=== PATIENT | female | born 1950 | race Caucasian/White ===

== ENCOUNTER 2022-08-14 10:21 | Inpatient (IN) | payer OTHER ==
[~2022-08-14] VITALS: Ht 157.5 cm; Wt 107.5 kg
[2022-08-14 10:25] VITALS: BP 120/57
[2022-08-14] MEDS ORDERED: cefTRIAXone 2,000 MG in DEXTROSE 5% 100 ML IV ONE (10:50)
[2022-08-14] MEDS ORDERED: cefTRIAXone 2,000 MG VIAL ONE (10:56)
[2022-08-14 11:04] LABS: BASOPHILS % (AUTO) 0.3 % (0.0-2.0); HEMATOCRIT 21.2 % (36-48); LYMPHOCYTES # (AUTO) 1.3 K/uL (2.5-16.5); MEAN CORPUSCULAR HEMOGLOBIN 26 pg (27-31); MEAN CORPUSCULAR HGB CONC 31 g/dL (33-37); MEAN CORPUSCULAR VOLUME 82.6 fL (80-94); MONOCYTES # (AUTO) 1.4 K/uL (0.8-1.0); NEUTROPHILS # (AUTO) 12.5 K/uL (1.8-7.7); PLATELET COUNT (AUTO) 396 K/uL (140-450); RED BLOOD CELL COUNT(AUTO) 2.57 MIL/uL (4.20-5.40); RED CELL DISTRIBUTION WIDTH 19.1 % (11.6-13.7); WHITE BLOOD COUNT (AUTO) 15.2 K/uL (4.8-10.8)
[2022-08-14 11:09] LABS: HEMOGLOBIN 6.7 g/dL (12.0-16.0)
[2022-08-14 11:20] LABS: LYMPHOCYTES % (AUTO) 8.2 % (20.5-51.1); MONOCYTES % (AUTO) 9.4 % (1.7-9.3); NEUTROPHILS % (AUTO) 82.1 % (42.2-75.2)
[2022-08-14 11:22] LABS: ANION GAP 16.6 (8-16); POTASSIUM 5.6 mmol/L (3.5-5.1); TOTAL BILIRUBIN 0.3 mg/dL (0.0-1.0)
[2022-08-14 11:27] LABS: CREATININE 4.9 mg/dL (0.6-1.3)
[2022-08-14 11:30] LABS: ALBUMIN 2.5 g/dL (3.4-5.0)
--- NOTE | 2022-08-14 11:43 | NUR ---
pt sleeping, no ac distress, o2 sat 95% at 90% o2, st on cm hr 102, sr up times 2, denies any pain
[2022-08-14] MEDS ORDERED: FUROSEMIDE 40 MG/4 ML VIAL IVP ONE (12:25)
[2022-08-14] MEDS ORDERED: CALCIUM CHLORIDE 10% 100 MG/ML SYR IVP ONE (12:25)
[2022-08-14] MEDS ORDERED: DEXTROSE 50% 50 ML SYR IVP ONE (12:25)
[2022-08-14] MEDS ORDERED: INSULIN REGULAR, HUMAN 100 UNIT/ML VIAL SUBQ ONE (12:25)
[2022-08-14 12:56] LABS: PROTHROMBIN TIME 10.9 secs (10.8-13.4)
--- NOTE | 2022-08-14 13:16 | NUR ---
SYLVESTER ALFRED was called ([phone]) for blood consent, no answer at this time.
[2022-08-14] MEDS ORDERED: VANCOMYCIN PER PHARMACY MC PRN (14:00)
[2022-08-14] MEDS ORDERED: HYDROcodone/APAP 5/325 MG 1 TAB TAB PO PRN (14:00)
[2022-08-14] MEDS ORDERED: MORPHINE SULFATE 4 MG/ML SYR IVP PRN (14:00)
--- NOTE | 2022-08-14 14:25 | NUR ---
sleeping, on 90% o2, o2 sat 96%, no pain, sr on cm, sr up times 2
[2022-08-14] MEDS ORDERED: PIPERACILLIN/TAZOBACTAM 2.25 GM VIAL IV ONE ×3 (14:46→21:44)
[2022-08-14] MEDS ORDERED: SODIUM ZIRCONIUM CYCLOSILICATE 10 GM POWD.PACK PO SCH (15:00)
[2022-08-14] MEDS: PIPERACILLIN/TAZOBACTAM 2.25 GM in DEXTROSE 5% 50 ML IV SCH ×2 (15:30→21:00)
[2022-08-14] MEDS ORDERED: VANCOMYCIN 1,000 MG VIAL ONE (15:41)
[2022-08-14] MEDS ORDERED: VANCOMYCIN 1,000 MG in DEXTROSE 5% 250 ML IV SCH (16:00)
[2022-08-14] MEDS: FUROSEMIDE 40 MG/4 ML VIAL IVP SCH (17:00)
--- NOTE | 2022-08-14 17:00 | NUR ---
no ac distress, sleeping, denies any pain, o2 sat 97% at 90% o2, sr up times 2
[2022-08-14] MEDS ORDERED: PIPERACILLIN/TAZOBACTAM 3.375 GM in DEXTROSE 5% 50 ML IV SCH (18:00)
[2022-08-14] MEDS: ALBUTEROL SULFATE/IPRATROPIU 3 ML SOL IH SCH (19:00)
--- NOTE | 2022-08-14 21:30 | NUR ---
ASSUMED CARE AT THIS TIME. PT ALERT AND ORIENTED X4. OMANI SPEAKING. UNDERSTANDS LITTLE MALTESE. PT IS ON BEDREST. HI FLOW ON 36 L/MIN. 02 SAT IN THE 90'S. 22 GAUGE TO RIGHT WRIST AND LEFT FOREARM. NPO DIET. PT IS WITH NEPHROSTOMY TUBE TO LEFT SIDE. NO COMPLAINTS AT THIS TIME.
[2022-08-14] MEDS: PANTOPRAZOLE 40 MG INJ VIAL IVP SCH (21:37)
--- NOTE | 2022-08-14 21:45 | NUR ---
REPORT AND CARE TO ARELI AVALOS WITH FULL RETURNED VERBAL UNDERSTANDING.
--- NOTE | 2022-08-14 22:30 | NUR ---
ALL PM MEDS GIVEN.
[2022-08-15] MEDS: ALBUTEROL SULFATE/IPRATROPIU 3 ML SOL IH SCH ×4 (01:00→19:47)
--- NOTE | 2022-08-15 02:30 | NUR ---
PT RESTING. DENIES COMPLAINTS OF PAIN.
[2022-08-15] MEDS ORDERED: PIPERACILLIN/TAZOBACTAM 2.25 GM VIAL IV ONE ×3 (04:26→21:32)
--- NOTE | 2022-08-15 04:45 | NUR ---
PT CLEANED AND REPOSITIONED. PT SEEMED TO BE WET BUT NO BM.
[2022-08-15] MEDS: PIPERACILLIN/TAZOBACTAM 2.25 GM in DEXTROSE 5% 50 ML IV SCH ×3 (04:49→21:45)
[2022-08-15 06:47] LABS: BASOPHILS # (AUTO) 0.1 K/uL (0.00-0.22); BASOPHILS % (AUTO) 0.5 % (0.0-2.0); HEMATOCRIT 25.1 % (36-48); HEMOGLOBIN 8.1 g/dL (12.0-16.0); LYMPHOCYTES # (AUTO) 0.7 K/uL (2.5-16.5); LYMPHOCYTES % (AUTO) 3.7 % (20.5-51.1); MEAN CORPUSCULAR HEMOGLOBIN 27 pg (27-31); MEAN CORPUSCULAR HGB CONC 32 g/dL (33-37); MEAN CORPUSCULAR VOLUME 84.1 fL (80-94); MONOCYTES % (AUTO) 10.4 % (1.7-9.3); NEUTROPHILS # (AUTO) 16.6 K/uL (1.8-7.7); NEUTROPHILS % (AUTO) 85.4 % (42.2-75.2); PLATELET COUNT (AUTO) 352 K/uL (140-450); RED BLOOD CELL COUNT(AUTO) 2.99 MIL/uL (4.20-5.40); WHITE BLOOD COUNT (AUTO) 19.5 K/uL (4.8-10.8)
[2022-08-15 07:16] LABS: ALBUMIN 1.9 g/dL (3.4-5.0); ANION GAP 17.7 (8-16); CARBON DIOXIDE 22.5 mmol/L (21-32); MAGNESIUM 2.1 mg/dL (1.8-2.4); PHOSPHORUS 6.7 mg/dL (2.5-4.9); POTASSIUM 5.2 mmol/L (3.5-5.1); TOTAL BILIRUBIN 0.2 mg/dL (0.0-1.0)
[2022-08-15 07:18] LABS: CREATININE 5.2 mg/dL (0.6-1.3)
--- NOTE | 2022-08-15 07:31 | NUR ---
ASSUMED PATIENT CARE EYE CLOSE, EASILY AWAKEN, ON MERCHANDISE HANDLER, NEPHOSTOMY WITH MINIMAL OUTPUT, 5 ML, ON HIGH FLOW, NO ACUTE DISTRESS NOTED WILL CONTINUE TO MO NITOR.
[2022-08-15] MEDS: PANTOPRAZOLE 40 MG INJ VIAL IVP SCH ×2 (08:50→21:44)
[2022-08-15] MEDS: FUROSEMIDE 40 MG/4 ML VIAL IVP SCH ×2 (08:50→17:37)
--- NOTE | 2022-08-15 09:24 | NUR ---
PATIENT HAS BEEN SCREENED AND CATEGORIZED MODERATE NUTRITION RISK. PATIENT WILL BE SEEN WITHIN 3-5 DAYS OF ADMISSION. 08/14/22-08/19/[address]
--- NOTE | 2022-08-15 10:07 | NUR ---
PATIENT REMAINS IN BED, ON ROOF ASSEMBLER, NO ACUTE DISTRESS NOTED, WILL CONTINUE TO MONITOR.
--- NOTE | 2022-08-15 12:14 | NUR ---
KIDNEY ULTRASOUND IN PROGRESS.
[2022-08-15] MEDS ORDERED: ALBUTEROL SULFATE/IPRATROPIU 3 ML SOL IH PRN (12:25)
--- NOTE | 2022-08-15 12:50 | NUR ---
PATIENT CHANGED POSITION WITH ASSISTANCE, CLEANS AND SHEETS CHANGED, REMAINS ON DELIVERY MGR, WILL CONTINUE TO MONITOR.
--- NOTE | 2022-08-15 14:53 | NUR ---
CALL CHARLES WITH ROOM NUMBER [phone]. OR SYLVESTER [phone]
--- NOTE | 2022-08-15 14:55 | NUR ---
NEPHROSTOMY EMPTIED FOR 200 YELLOW CLOUDY FLUID.
--- NOTE | 2022-08-15 15:30 | NUR ---
patient placed on bipap.
[2022-08-15 15:38] VITALS: BP 125/55
--- NOTE | 2022-08-15 19:40 | NUR ---
Resumed care of patient. AOx4, wolof speaking. Pt on bipap o2sat 93%. No s/s distress. No c/o pain. VSS. Continues to be on bedside monitor.
--- NOTE | 2022-08-15 19:44 | NUR ---
Respiratory Therapist at bedside for respiratory intervention
[2022-08-15 19:49] VITALS: BP 129/66
--- NOTE | 2022-08-15 22:33 | NUR ---
Attemped to call tele unit twice to give report. No response.
--- NOTE | 2022-08-15 23:00 | NUR ---
PATIENT WAS ADMITTED IN THE TELEMETRY UNIT AWAKE ALERT PORTUGUESE SPEAKING. CC: SOB AND HYPOXIA. PLACED ON BIPAP A WITH FIO2 100% SATING 93%. ON HIGH FOWLERS POSITION. INSTRUCTED PATIENT TO BE NPO EXCEPT MEDS WITH UNDERSTANDING. NO COMPLAINTS OF PAIN. ALL SAFETY PRECAUTIONS ARE IN PLACE. CALL LIGHT WITHIN REACH.
--- NOTE | 2022-08-15 23:04 | NUR ---
Report given bedside to Kady AVALOS for transfer of care.
--- NOTE | 2022-08-16 01:21 | NUR ---
PT REFUSING BIPAP AT THIS TIME. PLACED ON HFNC 40L 100%. PT FEELS BETTER. SPO2 89%, HR 104, RR 30. NO FURTHER INTERVENTIONS INDICATED.
[2022-08-16] MEDS: ALBUTEROL SULFATE/IPRATROPIU 3 ML SOL IH SCH ×4 (03:38→19:13)
[2022-08-16 04:00] VITALS: BP 143/63
[2022-08-16] MEDS ORDERED: PIPERACILLIN/TAZOBACTAM 2.25 GM VIAL IV ONE (04:40)
[2022-08-16] MEDS: PIPERACILLIN/TAZOBACTAM 2.25 GM in DEXTROSE 5% 50 ML IV SCH ×3 (04:42→20:53)
--- NOTE | 2022-08-16 06:30 | NUR ---
URINE COLLECTED FOR UA , WALK IN TO LAB
[2022-08-16 06:37] LABS: HEMATOCRIT 24.3 % (36-48); HEMOGLOBIN 7.8 g/dL (12.0-16.0); MEAN CORPUSCULAR HEMOGLOBIN 27 pg (27-31); MEAN CORPUSCULAR HGB CONC 32 g/dL (33-37); PLATELET COUNT (AUTO) 346 K/uL (140-450); RED CELL DISTRIBUTION WIDTH 18.9 % (11.6-13.7); WHITE BLOOD COUNT (AUTO) 15.7 K/uL (4.8-10.8)
[2022-08-16 06:53] LABS: APPEARANCE,URINE CLEAR (CLEAR); BILIRUBIN,URINE NEGATIVE (NEGATIVE); BLOOD, URINE 2+ (NEGATIVE); COLOR,URINE YELLOW (YELLOW); LEUKOCYTE ESTERASE ,URINE 2+ (NEGATIVE); NITRITE, URINE NEGATIVE (NEGATIVE); PH,URINE 5.5 (5.0-9.0); UGLUCOSE NEGATIVE (NEGATIVE)
[2022-08-16 07:07] LABS: RBC,URINE 11-20 (MOD) /HPF (0-5)
[2022-08-16 07:08] LABS: OTHER CASTS, URINE None Seen /LPF (None Seen)
[2022-08-16 07:34] LABS: ALBUMIN 1.8 g/dL (3.4-5.0); ANION GAP 19.4 (8-16); CARBON DIOXIDE 20.4 mmol/L (21-32); MAGNESIUM 2.1 mg/dL (1.8-2.4); POTASSIUM 4.8 mmol/L (3.5-5.1); TOTAL BILIRUBIN 0.3 mg/dL (0.0-1.0)
--- NOTE | 2022-08-16 07:39 | NUR ---
GAVE REPORT TO AM SHIFT NURSE JACKSON FOR CONTINUITY OF CARE. PT ON HI FLOW AT 40L FIO2 100%.
[2022-08-16 07:59] LABS: CREATININE 5.2 mg/dL (0.6-1.3)
[2022-08-16 08:00] VITALS: BP 146/68
--- NOTE | 2022-08-16 08:40 | NUR ---
LOC AWAKE AND ALERT GOOD CHEST RISE IRRITABLE/ANGRY STATUS REFUSING ALL HHN THERAPY ADAMANTLY RIGHT FINGER STATING NO - NO
[2022-08-16] MEDS: PANTOPRAZOLE 40 MG INJ VIAL IVP SCH ×2 (09:00→20:53)
[2022-08-16] MEDS: FUROSEMIDE 40 MG/4 ML VIAL IVP SCH ×2 (09:00→17:13)
[2022-08-16] MEDS ORDERED: VANCOMYCIN HCL 1.25 GM in DEXTROSE 5% 250 ML IV SCH (09:00)
[2022-08-16] MEDS: MORPHINE SULFATE 2 MG/ML SYR IVP PRN ×2 (09:49→17:13)
[2022-08-16 11:29] LABS: LYMPHOCYTES % (MANUAL) 6 % (20-46); MONOCYTES % (MANUAL) 4 % (5-12)
[2022-08-16 12:00] VITALS: BP 135/59
[2022-08-16 16:00] VITALS: BP 139/74
--- NOTE | 2022-08-16 16:20 | NUR ---
DC PLANNING ANIBAL UNABLE TO MEET WITH PT AT BEDSIDE TO COMPLETE ASSESSMENT, THEREFORE SW OUTREACHED TO [facility] TO GATHER COLLATERAL INFORMATION. ANIBAL SPOKE W/ BASIA PETERSON, DIRECTOR. [facility]IA REPORTS PT IS IN SKILLED CARE WITH FACILITY, ADMISSION DATE 07/21/22. [facility] REPORTS PT IS ALERT AND ORIENTED X4 AT BASELINE. [facility] IDENTIFIED SYLVESTER ALFRED, FRIEND, PT EMERGENCY CONTACT. [facility] REPORTS NO KNOWN FAMILY INVOLVEMENT, AND REPORTS PT HAS A SON, HOWEVER RESIDES OUT OF STATE. PT IS REPORTED TO UTILIZE FWW AND COMPLETES ADL'S INDEPENDENTLY. PT IS REPORTED TO BE COMPLIANT WITH CARE. NO HX OF DIABETES/DIALYSIS TX REPORTED. BASIA REPORTS DC PLAN IS FOR PT TO RETURN ONCE MEDICALLY STABLE. Addendum: 08/16/22 at 1621 by Maisha SHEETS Amended: Links added. Addendum: 08/17/22 at 1716 by Maisha SHEETS PT PRIMARILY MONGOLIAN SPEAKING, PROVIDED SW NL HX OF PT AND REQUESTED SW SPEAK WITH PT TO GATHER ADDITIONAL INFORMATION OF FAMILY CONTACT. CAROLYN ACKNOWLEDGED AND REPORTS SHE WILL SPEAK TO PT
--- NOTE | 2022-08-16 18:37 | NUR ---
ATTEMPTED TO INSERT MILLER CATHETER ORDERED MET WITH RESISTANCE THEN BLOOD INSERTION ABORTED AND DR TUCKER TEXTED AND MADE AWARE CN AWARE MILLER CATHETER INSERTION UNSUCESSFUL
[2022-08-16 20:00] VITALS: BP 148/77
--- NOTE | 2022-08-16 20:53 | NUR ---
SCHEDULED MEDICATIONS ADMINISTERED.
[2022-08-17] VITALS: BP 142/63
[2022-08-17] MEDS: ALBUTEROL SULFATE/IPRATROPIU 3 ML SOL IH SCH ×3 (01:00→19:56)
[2022-08-17 04:00] VITALS: BP 138/68
[2022-08-17] MEDS: PIPERACILLIN/TAZOBACTAM 2.25 GM in DEXTROSE 5% 50 ML IV SCH ×3 (05:17→20:45)
--- NOTE | 2022-08-17 06:58 | NUR ---
PATIENT IS AWAKE ALERT VERBALLY RESPONSIVE IN URDU. ON HIGH FLOW O2 AT 22L. NO DISTRESS. NO COMPLAINTS OF PAIN. CALL LIGHT ON EASY REACH. SAFETY MEASURES IN PLACE.
[2022-08-17 07:36] LABS: BASOPHILS # (AUTO) 0.1 K/uL (0.00-0.22); BASOPHILS % (AUTO) 0.9 % (0.0-2.0); EOSINOPHILS # (AUTO) 0.4 K/uL (0-0.4); EOSINOPHILS % (AUTO) 2.8 % (0.0-4.0); HEMATOCRIT 23.2 % (36-48); HEMOGLOBIN 7.8 g/dL (12.0-16.0); LYMPHOCYTES # (AUTO) 1.2 K/uL (2.5-16.5); LYMPHOCYTES % (AUTO) 9.1 % (20.5-51.1); MEAN CORPUSCULAR HEMOGLOBIN 27 pg (27-31); MEAN CORPUSCULAR HGB CONC 33 g/dL (33-37); MEAN CORPUSCULAR VOLUME 81.6 fL (80-94); MONOCYTES # (AUTO) 1.4 K/uL (0.8-1.0); MONOCYTES % (AUTO) 10.8 % (1.7-9.3); NEUTROPHILS # (AUTO) 9.9 K/uL (1.8-7.7); NEUTROPHILS % (AUTO) 76.4 % (42.2-75.2); PLATELET COUNT (AUTO) 332 K/uL (140-450); RED BLOOD CELL COUNT(AUTO) 2.85 MIL/uL (4.20-5.40); RED CELL DISTRIBUTION WIDTH 18.9 % (11.6-13.7)
[2022-08-17 07:41] LABS: ALBUMIN 2.2 g/dL (3.4-5.0); ANION GAP 17.1 (8-16); MAGNESIUM 1.8 mg/dL (1.8-2.4); POTASSIUM 4.1 mmol/L (3.5-5.1); TOTAL BILIRUBIN 0.4 mg/dL (0.0-1.0)
--- NOTE | 2022-08-17 07:48 | NUR ---
ENDORSED PATIENT TO DAY SHIFT NURSE JACKSON FOR CONTINUITY OF CARE. PATIENT STABLE.
[2022-08-17 08:00] VITALS: BP 125/68
[2022-08-17 08:01] LABS: CREATININE 4.6 mg/dL (0.6-1.3)
--- NOTE | 2022-08-17 08:07 | NUR ---
ASSESSMENT COMPLETED PLAN OF CARE REVIEWED UROLOGIST RESEARCH LABORATORY SPECIALIST IN AND MADE AWARE OF BUN AND CREATININE RESULTS TODAY UROLOGIST ORDERED UROLOGY CART TO BEDSIDE UROLOGY CART AT BEDSIDE PER UROLOGY RESEARCH LABORATORY SPECIALIST REQUEST PT CONDITION GUARDED WILL CONITNUE TO ONITOR AND ASSESS
[2022-08-17] MEDS: PANTOPRAZOLE 40 MG INJ VIAL IVP SCH ×2 (09:18→20:52)
[2022-08-17] MEDS: FUROSEMIDE 40 MG/4 ML VIAL IVP SCH ×2 (09:19→16:55)
--- NOTE | 2022-08-17 11:30 | NUR ---
PT IS SATING 88% ON HFNC 100% AND SLEEPING. DR WANTED TO TRY AND PLACE PT ON NC 4L PT WILL NOT TOLERATE TITRATION AT THIS TIME. WILL WAIT FOR PT TO BECOME MORE STABLE TO TRY TITRATION OF O2. WILL CONTINUE TO MONITOR.
[2022-08-17 12:00] VITALS: BP 129/57
[2022-08-17 16:00] VITALS: BP 134/85
--- NOTE | 2022-08-17 19:20 | NUR ---
RECEIVED REPORT FROM OUTGOING DAY NURSE. PT IN BED, IV FLUID RUNNING @ 5ML/HR. PT ON HFNC SATING @93-95. ON PT LT SIDE IS NEPHRETOMY DRAINING YELLOW URINE. WILL CONT TO MONITOR.
[2022-08-17] MEDS: ACETAMINOPHEN 325 MG TAB PO PRN (20:35)
--- NOTE | 2022-08-17 21:00 | NUR ---
PT LYING IN BED, ASSISTED WITH REPOSITIONING. HS MEDICATIONS GIVEN, TOLERATED WELL, NO ASE NOTED.
--- NOTE | 2022-08-17 22:00 | NUR ---
EMPTIED 400ML YELLOW URINE FROM PT NEPHRECTOMY BAG, PT REPOSITED, GIVEN SOME WATER TO DRINK REQUESTED. WILL CONT. TO MONITOR.
[2022-08-17 23:27] VITALS: BP 156/71
[2022-08-18] MEDS: ALBUTEROL SULFATE/IPRATROPIU 3 ML SOL IH SCH ×4 (02:27→19:38)
[2022-08-18] MEDS: PIPERACILLIN/TAZOBACTAM 2.25 GM in DEXTROSE 5% 50 ML IV SCH ×3 (05:39→22:02)
[2022-08-18 05:41] VITALS: BP 113/48
[2022-08-18 07:08] LABS: ALBUMIN 2.2 g/dL (3.4-5.0); ANION GAP 16.6 (8-16); CARBON DIOXIDE 25.2 mmol/L (21-32); MAGNESIUM 1.8 mg/dL (1.8-2.4); PHOSPHORUS 5.2 mg/dL (2.5-4.9); POTASSIUM 3.8 mmol/L (3.5-5.1); TOTAL BILIRUBIN 0.4 mg/dL (0.0-1.0)
--- NOTE | 2022-08-18 07:25 | NUR ---
END OF SHIFT REPORT GIVEN TO DAY NURSE ADAMA FOR CONTINUITY OF CARE. PT ASLEEP IN BED COMFORTABLY. PT STABLE AND IN NO APPARENT DISTRESS.
[2022-08-18 07:40] LABS: BASOPHILS # (AUTO) 0.1 K/uL (0.00-0.22); EOSINOPHILS # (AUTO) 0.5 K/uL (0-0.4); EOSINOPHILS % (AUTO) 3.6 % (0.0-4.0); HEMATOCRIT 24.4 % (36-48); HEMOGLOBIN 8.1 g/dL (12.0-16.0); LYMPHOCYTES # (AUTO) 1.2 K/uL (2.5-16.5); LYMPHOCYTES % (AUTO) 9.3 % (20.5-51.1); MEAN CORPUSCULAR HEMOGLOBIN 27 pg (27-31); MEAN CORPUSCULAR HGB CONC 33 g/dL (33-37); MEAN CORPUSCULAR VOLUME 81.3 fL (80-94); MONOCYTES # (AUTO) 1.2 K/uL (0.8-1.0); MONOCYTES % (AUTO) 9.5 % (1.7-9.3); NEUTROPHILS # (AUTO) 9.9 K/uL (1.8-7.7); NEUTROPHILS % (AUTO) 76.6 % (42.2-75.2); PLATELET COUNT (AUTO) 350 K/uL (140-450); RED CELL DISTRIBUTION WIDTH 18.6 % (11.6-13.7); WHITE BLOOD COUNT (AUTO) 12.9 K/uL (4.8-10.8)
[2022-08-18 07:59] LABS: CREATININE 4.3 mg/dL (0.6-1.3)
[2022-08-18 08:00] VITALS: BP 113/48
[2022-08-18] MEDS: PANTOPRAZOLE 40 MG INJ VIAL IVP SCH ×2 (10:40→22:03)
[2022-08-18] MEDS: FUROSEMIDE 40 MG/4 ML VIAL IVP SCH ×2 (10:41→17:00)
[2022-08-18 12:00] VITALS: BP 113/48
--- NOTE | 2022-08-18 13:35 | NUR ---
SATURATION 97% ON FIO2 OF 100% VIA VAPOTHERM HIGH FLOW NASAL CANNULA POST HHN THERAPY TITRATED FIO2 TO 75%
[2022-08-18 16:00] VITALS: BP 110/53
--- NOTE | 2022-08-18 19:50 | NUR ---
RECEIVED PT ON BED, AWAKE, ALERT AND VERBALLY RESPONSIVE IN [place]. NO SOB OR DISTRESS. PT IS ON RENAL DIET. IV SITE IS ON RIGHT FOREARM 20G, INTACT AND PATENT. PT WITH NEPHROSTOMY TUBE, INTACT, URINE WITH LIGHT YELLOW COLOR IS DRAINING INTO THE BAG.
--- NOTE | 2022-08-18 19:53 | NUR ---
ENDORSE PATIENT TO PM SHIFT NURSE IN STABLE CONDITION, PIV R. FOREARM SALINE LOCK.
[2022-08-18 20:00] VITALS: BP 114/63
--- NOTE | 2022-08-18 21:15 | NUR ---
PT TAKEN TO RADIOLOGY FOR ABDOMINAL CAT SCAN. PT TRANSPORTED WITH HIGH FLOW, TOLERATES WELL.
--- NOTE | 2022-08-18 21:20 | NUR ---
ASSISTED IN TRANSFER TO CT WITH NURSE VILLA. PLACED PT ON NRB 100% PT SPO2 REMAINED AT 100%. NO ISSUES DURING TRANSPORT. PLACED PT BACK ON HFNC 25L 75% SPO2 97%
[2022-08-19] VITALS: BP 143/72
[2022-08-19] MEDS: ALBUTEROL SULFATE/IPRATROPIU 3 ML SOL IH SCH ×4 (01:00→19:00)
[2022-08-19 04:00] VITALS: BP 119/65
[2022-08-19 07:02] LABS: BASOPHILS # (AUTO) 0.1 K/uL (0.00-0.22); BASOPHILS % (AUTO) 0.6 % (0.0-2.0); EOSINOPHILS # (AUTO) 0.3 K/uL (0-0.4); EOSINOPHILS % (AUTO) 2.2 % (0.0-4.0); LYMPHOCYTES # (AUTO) 1.5 K/uL (2.5-16.5); LYMPHOCYTES % (AUTO) 10.5 % (20.5-51.1); MEAN CORPUSCULAR HEMOGLOBIN 27 pg (27-31); MEAN CORPUSCULAR HGB CONC 33 g/dL (33-37); MEAN CORPUSCULAR VOLUME 80.8 fL (80-94); MONOCYTES # (AUTO) 1.2 K/uL (0.8-1.0); MONOCYTES % (AUTO) 8.5 % (1.7-9.3); NEUTROPHILS # (AUTO) 11.2 K/uL (1.8-7.7); NEUTROPHILS % (AUTO) 78.2 % (42.2-75.2); PLATELET COUNT (AUTO) 334 K/uL (140-450); RED BLOOD CELL COUNT(AUTO) 2.97 MIL/uL (4.20-5.40); RED CELL DISTRIBUTION WIDTH 18.7 % (11.6-13.7); WHITE BLOOD COUNT (AUTO) 14.3 K/uL (4.8-10.8)
--- NOTE | 2022-08-19 07:20 | NUR ---
RECEIVED PT ON HFNC 25L, 75%,33 DEGREE. GOOD CHEST RISE, CLEAR/ DIMINISHED BREATH SOUNDS. SATURATION 96%. STRONG COUGH. WILL CONTINUE TO MONITOR.
[2022-08-19 07:35] LABS: ALBUMIN 2.2 g/dL (3.4-5.0); ANION GAP 15.7 (8-16); CARBON DIOXIDE 25.7 mmol/L (21-32); MAGNESIUM 1.8 mg/dL (1.8-2.4); POTASSIUM 3.4 mmol/L (3.5-5.1); TOTAL BILIRUBIN 0.5 mg/dL (0.0-1.0)
[2022-08-19 07:43] LABS: CREATININE 4.2 mg/dL (0.6-1.3)
[2022-08-19 08:00] VITALS: BP 133/59
[2022-08-19] MEDS: FUROSEMIDE 40 MG/4 ML VIAL IVP SCH ×3 (09:44→17:15)
[2022-08-19] MEDS: PANTOPRAZOLE 40 MG INJ VIAL IVP SCH ×2 (09:44→21:23)
--- NOTE | 2022-08-19 10:00 | NUR ---
ALL MORNING MEDICATIONS GIVE, ASSESSMENT COMPLETE. PT STABLE. PT HAS BEEN CLEANED AND REPOSITIONED. 1 MODERATE BM NOTED. ALL SAFETY MEASURES IN PLACE, CALL LIGHT WITHIN REACH. WILL CONTINUE TO MONITOR.
[2022-08-19 12:00] VITALS: BP 125/58
--- NOTE | 2022-08-19 12:56 | NUR ---
DC PLANNING: SUSHANT GABRIEL OF [facility] [phone] CONTACTED TO PROVIDE UPDATES. NO ANSWER. LEFT MESSAGE REQUESTING CALL BACK. Addendum: 08/24/22 at 1444 by Missy Archuleta RN DC PLANNING: PATIENT HAS A DC ORDER TO RETURN TO [facility] SPOKE WITH GARCIA JIMENEZ GO TO ROOM 102 # TO GIVE REPORT [phone] ARRANGED TRANSPORT WITH [facility]ER TIME 4 PM NOTIFIED JAMES AVALOS. AUTH FOR TRANSPORT [id number] FOR SNF [id number] CM TO FOLLOW
[2022-08-19] MEDS ORDERED: POTASSIUM CHLORIDE 10 MEQ TABER PO SCH (15:45)
[2022-08-19 16:00] VITALS: BP 122/56
--- NOTE | 2022-08-19 16:49 | NUR ---
08/19/22 RD INITIAL ASSESSMENT COMPLETED PLEASE REFER TO NUTRITION ASSESSMENT UNDER CARE ACTIVITY FOR ESTIMATED NUTRITIONAL NEEDS. 1. CONTINUE RENAL DIET TOLERATED 2. MONITOR NUTRITION RELATED LAB VALUES 3. RD TO FOLLOW-UP 7 DAYS, LOW RISK REVIEWED BY OLE SERRANO RD
--- NOTE | 2022-08-19 17:44 | NUR ---
PRIOR DOSAGE/ FREQ GIVEN AT ROUGHLY 1640 FOR 1700 DOSE OF LASIX. CONFIRMED WITH PHARMACY THAT THE NEW ORDER DOES NOT HAVE TO BE GIVEN DUE TO ORDER ALREADY BEING FULFILLED
--- NOTE | 2022-08-19 19:30 | NUR ---
RECEIVED REPORT FROM DAY SHIFT NURSE EPHRAIM FOR CONTINUITY OF CARE. PATIENT IS A&O X3, CAMBODIAN SPEAKING. PATIENT IS ON HIGH FLOW OXYGEN 25L; BREATHING IS NORMAL WITH SYMMETRICAL RISE AND FALL OF CHEST. IV IS A 20G RFA; NO FLUIDS RUNNING AT THIS TIME (SALINE LOCKED). PATIENT IS LYING SEMI-FOWLERS, SLEEPING. BED IS IN LOWEST POSITION, WHEELS LOCKED, CALL LIGHT IN PLACE. WILL CONTINUE TO OBSERVE PATIENT.
[2022-08-19 20:00] VITALS: BP_SYST 133; BP_SYST 134; BP_DIAS 57; BP_DIAS 59
[2022-08-20] VITALS: BP 112/47
[2022-08-20] MEDS: ALBUTEROL SULFATE/IPRATROPIU 3 ML SOL IH SCH ×4 (00:53→19:54)
[2022-08-20 04:00] VITALS: BP 141/51
--- NOTE | 2022-08-20 04:00 | NUR ---
PATIENT HAS SLEPT MOST OF THE NIGHT. PATIENT'S NEPHROSTOMY BAG HAS BEEN EMPTIED MULTIPLE TIMES THROUGHOUT THE NIGHT. PATIENT IS STILL ON HIGH FLOW 25L AT FIO2 70. WILL CONTINUE TO OBSERVE PATIENT.
--- NOTE | 2022-08-20 07:27 | NUR ---
RECEIVED REPORT FROM DIRECTOR MEDICAL ECONOMICS NURSE FOR CONTINUITY OF CARE, POC DISCUSSED. ALL NIGHT EVENTS HAVE BEEN DISCUSSED, PT STILL ON HIGH FLOW AT 25L AND 70%, SATING AT 94%. CHEST RISING AND FALLING EVEN AND UNLABORED. ALL SAFETY MEASURES IN PLACE, CALL LIGHT WITHIN REACH, WILL CONTINUE TO MONITOR.
--- NOTE | 2022-08-20 07:30 | NUR ---
ENDORSED TO DAY SHIFT NURSE EPHRAIM FOR CONTINUITY OF CARE. PATIENT IS STABLE.
[2022-08-20 08:00] VITALS: BP 132/65
--- NOTE | 2022-08-20 09:00 | NUR ---
ZAIN MEDICATION ADMINISTERED PER MD ORDER, PT TOLERATED ADMINISTRATION. 550 CC REMOVED FROM CATHETER. PT STABLE WITH NO S/S OF DISTRESS. ALL SAFETY MEASURES IN PLACE, CALL LIGHT WITHIN REACH. WILL CONTINUE TO MONITOR.
[2022-08-20] MEDS: PANTOPRAZOLE 40 MG INJ VIAL IVP SCH ×2 (09:03→23:54)
[2022-08-20] MEDS: FUROSEMIDE 40 MG/4 ML VIAL IVP SCH ×3 (09:03→16:55)
--- NOTE | 2022-08-20 11:52 | NUR ---
PT REPORTING HAVING A BM, PT CLEANED, NEW SHEETS AND GOWN PROVIDED. ALL NEEDS HAVE BEEN MET, ALL SAFETY MEASURES IN PLACE, CALL LIGHT WITHIN REACH. WILL CONTINUE TO MONITOR.
[2022-08-20 12:00] VITALS: BP 134/60
[2022-08-20] MEDS ORDERED: POTASSIUM CHLORIDE 10 MEQ TABER PO SCH (13:30)
--- NOTE | 2022-08-20 13:49 | NUR ---
ZAIN MEDICATION ADMINISTERED AND PT CLEANED AND REPOSITIONED. 1 BM NOTED. ALL SAFETY MEASURES IN PLACE, CALL LIGHT WITHIN REACH. WILL CONTINUE TO MONITOR.
[2022-08-20 16:00] VITALS: BP 143/57
--- NOTE | 2022-08-20 16:01 | NUR ---
PATIENT DOING GOOD AT BEDSIDE,TALKING IN PHONE,ALL NEEDS ARE CURRENTLY MET, ALL SAFETY MEASURES ARE IN PLACE,WILL CONTINUE TO MONITOR
--- NOTE | 2022-08-20 18:55 | NUR ---
ALL NEEDS HAVE BEEN MET THROUGHOUT THE SHIFT. ALL SAFETY MEASURES IN PLACE, CALL LIGHT WITHIN REACH. WILL CONTINUE TO MONITOR.
--- NOTE | 2022-08-20 19:30 | NUR ---
HAND-OFF REPORT RECEIVED FROM EPHRAIM AVALOS FOR CONTINUITY OF CARE. PT RECEIVED A/OX2. HI FLOW 25L/MIN@70%. SAT 94%. LEFT NEPHROSTOMY TUBE TO GRAVITY FLOW CLEAR YELLOW URINE.
[2022-08-20 20:00] VITALS: BP 134/55
--- NOTE | 2022-08-20 22:00 | NUR ---
PT RESTING DENIES PAIN. ASSESSMENT COMPLETE. PT STABLE. LARGE STOOL. KELLY-CARE. ALL SAFETY MEASURES IN PLACE. CALL LIGHT WITHIN REACH. CONT TO MONITOR.
[2022-08-21] VITALS: BP 136/62
[2022-08-21] MEDS: ALBUTEROL SULFATE/IPRATROPIU 3 ML SOL IH SCH ×4 (01:00→19:00)
[2022-08-21 04:00] VITALS: BP 125/52
--- NOTE | 2022-08-21 04:00 | NUR ---
RESPIRATORY AT BEDSIDE TO CHECK WHY SAT ALARM SOUNDING INSPITE OF PT BREATHING DEEPLY. PT WAS LAYING ON CORD OBSTRUCTING AIR FLOW OF MACHINE. PT REPOSITIONED AND PT TEACHING CONCERNING EQUIPMENT PROPER USE.
--- NOTE | 2022-08-21 07:25 | NUR ---
RECEIVED REPORT FROM CROCHET BEADER NURSE FOR CONTINUITY OF ARE. PT IS STABLE.
--- NOTE | 2022-08-21 07:30 | NUR ---
HAND-OFF REPORT TO HAYDE Weber RN FOR CONTINUITY OF CARE. LEFT NEPHROSTOMY TUBE TOTAL FOR SHIFT 1450 MLs CLEAR PALE YELLOW NON FOUL SMELLING URINE. EMPTIED IN 3 BATCHES BAG IS SMALL. PT TEACHING CONCERNING NURSE EMPTYING SCHEDULE OF BAG TO ALLAY PT FEARS OF BAG BURSTING OF BACK FLOWING.RELINQUISHED CARE OF PT AT THIS TIME.
[2022-08-21 08:00] VITALS: BP 139/56
[2022-08-21] MEDS: PANTOPRAZOLE 40 MG INJ VIAL IVP SCH ×2 (09:42→21:00)
[2022-08-21] MEDS: FUROSEMIDE 40 MG/4 ML VIAL IVP SCH ×3 (09:42→17:18)
[2022-08-21 11:06] LABS: BASOPHILS # (AUTO) 0.1 K/uL (0.00-0.22); BASOPHILS % (AUTO) 0.9 % (0.0-2.0); EOSINOPHILS # (AUTO) 0.4 K/uL (0-0.4); HEMATOCRIT 28.9 % (36-48); HEMOGLOBIN 9.4 g/dL (12.0-16.0); LYMPHOCYTES # (AUTO) 1.3 K/uL (2.5-16.5); LYMPHOCYTES % (AUTO) 18.2 % (20.5-51.1); MEAN CORPUSCULAR HEMOGLOBIN 27 pg (27-31); MEAN CORPUSCULAR HGB CONC 32 g/dL (33-37); MEAN CORPUSCULAR VOLUME 82.8 fL (80-94); MONOCYTES # (AUTO) 0.7 K/uL (0.8-1.0); MONOCYTES % (AUTO) 10.5 % (1.7-9.3); NEUTROPHILS # (AUTO) 4.6 K/uL (1.8-7.7); NEUTROPHILS % (AUTO) 64.4 % (42.2-75.2); PLATELET COUNT (AUTO) 34 K/uL (140-450); RED BLOOD CELL COUNT(AUTO) 3.49 MIL/uL (4.20-5.40); RED CELL DISTRIBUTION WIDTH 18.5 % (11.6-13.7); WHITE BLOOD COUNT (AUTO) 7.1 K/uL (4.8-10.8)
[2022-08-21 11:15] LABS: ANION GAP 15.6 (8-16); CARBON DIOXIDE 26.5 mmol/L (21-32); CREATININE 2.8 mg/dL (0.6-1.3); POTASSIUM 4.1 mmol/L (3.5-5.1)
[2022-08-21 12:00] VITALS: BP 143/58
[2022-08-21 16:00] VITALS: BP 139/52
--- NOTE | 2022-08-21 19:15 | NUR ---
ENDORSED PT TO GENERAL WAREHOUSE WORKER FOR CONTINUITY OF CARE. PT STABLE.
--- NOTE | 2022-08-21 19:30 | NUR ---
HAND-OFF REPORT RECEIVED FROM HAYED AVALOS. ENDORSED MERREM BEGAN PER NEW ID CONSULT. ULTRASOUND OF KIDNEYS ORDERED AND PENDING. DRESSING IS TO REMAIN UNDISTURBED UNLESS ORDERED OTHERWISE. ABG'S ORDERED WITH BIPAP AT [facility] PENDING CO2 LEVELS. PT RECEIVED A/0X4.
[2022-08-21 20:00] VITALS: BP 148/59
--- NOTE | 2022-08-21 20:00 | NUR ---
ASSISTED WITH BSC. ONE MOD AMT SOFT FORMED STOOL PERICARE AND BACK TO BED. NEPHROSTOMY TUBE EMPTIED. FAMILY VISITING AND INTERPRETED TO PT NO GETTING OOB INDEPENDENTLY BUT PUSH RED BUTTON FOR NURSE TO ASSIST THEREBY AVERTING POSSIBLE FALL. PT STATED UNDERSTOOD. ALSO EXPLAINED TO LET STAFF DO ALL MANIPULATIONS OF NEPHROSTOMY BAG SUCH EMPTYING SO AN ACCURATE COUNT CAN BE OBTAINED. STATED UNDERSTOOD.
[2022-08-21] MEDS: MEROPENEM 500 MG in NACL 0.9% 50 ML IV SCH (21:00)
--- NOTE | 2022-08-21 23:21 | NUR ---
HFNC FIO2 TITRATED TO 53% W/ SPO2 OF 95% 10 MIN POST TITRATION WILL CONTINUE TO MONITOR AND TITRATE TOLERATED
[2022-08-21] MEDS: ACETAMINOPHEN 325 MG TAB PO PRN (23:35)
[2022-08-22] VITALS (7 sets, daily range): BP systolic 108–158; BP diastolic 41–78
[2022-08-22] MEDS: ALBUTEROL SULFATE/IPRATROPIU 3 ML SOL IH SCH ×4 (01:00→20:20)
[2022-08-22 07:00] LABS: BASOPHILS # (AUTO) 0.1 K/uL (0.00-0.22); BASOPHILS % (AUTO) 0.8 % (0.0-2.0); EOSINOPHILS # (AUTO) 0.6 K/uL (0-0.4); EOSINOPHILS % (AUTO) 6.6 % (0.0-4.0); HEMATOCRIT 23.6 % (36-48); HEMOGLOBIN 7.9 g/dL (12.0-16.0); LYMPHOCYTES # (AUTO) 1.4 K/uL (2.5-16.5); LYMPHOCYTES % (AUTO) 16.3 % (20.5-51.1); MEAN CORPUSCULAR HEMOGLOBIN 27 pg (27-31); MEAN CORPUSCULAR HGB CONC 33 g/dL (33-37); MEAN CORPUSCULAR VOLUME 81.1 fL (80-94); MONOCYTES # (AUTO) 1.1 K/uL (0.8-1.0); MONOCYTES % (AUTO) 12.9 % (1.7-9.3); NEUTROPHILS # (AUTO) 5.6 K/uL (1.8-7.7); NEUTROPHILS % (AUTO) 63.4 % (42.2-75.2); PLATELET COUNT (AUTO) 363 K/uL (140-450); RED BLOOD CELL COUNT(AUTO) 2.91 MIL/uL (4.20-5.40); RED CELL DISTRIBUTION WIDTH 18.4 % (11.6-13.7); WHITE BLOOD COUNT (AUTO) 8.9 K/uL (4.8-10.8)
[2022-08-22 07:09] LABS: ANION GAP 13.9 (8-16); CARBON DIOXIDE 30.1 mmol/L (21-32); CREATININE 2.3 mg/dL (0.6-1.3)
--- NOTE | 2022-08-22 07:10 | NUR ---
RECEIVED REPORT FRON MEDICAL INSTRUMENT TECHNICIAN NURSE FOR CONTINUITY OF ARE. PT IS STABLE.
[2022-08-22 07:22] LABS: MAGNESIUM 1.4 mg/dL (1.8-2.4); PHOSPHORUS 4.3 mg/dL (2.5-4.9)
--- NOTE | 2022-08-22 07:30 | NUR ---
HAND-OFF REPORT TO ONCOMING/RETURNING NURSE HAYDE. ENDORSED PT COMPLIANT WITH HANDLING OF NEPHROSTOMY BAG.HI FLOW CONTINUES. PT MEDICATED WITH TYLENOL FOR FRONTAL HEADACHE AT HS AND SLEPT WELL THRU OUT NOC. MERREM BEGAN ORDERED. ULTRASOUND AND BIPAP PENDING.RELINQUISHED CARE OF PT AT THS TIME.
--- NOTE | 2022-08-22 07:48 | NUR ---
HFNC FIO2 TITRATED TO 50% W/ SPO2 OF 97% 10 MIN POST TITRATION. WILL CONTINUE TO MONITOR AND TITRATE TOLERATED
[2022-08-22] MEDS: PANTOPRAZOLE 40 MG INJ VIAL IVP SCH ×2 (09:22→21:00)
[2022-08-22] MEDS: FUROSEMIDE 40 MG/4 ML VIAL IVP SCH ×3 (09:22→21:00)
[2022-08-22] MEDS: MEROPENEM 500 MG in NACL 0.9% 50 ML IV SCH ×2 (09:24→21:00)
[2022-08-22] MEDS ORDERED: MAG SULF 2000 MG/WATER PREMIX 50 ML IV PRN (10:05)
[2022-08-22] MEDS: POTASSIUM CHLORIDE 10 MEQ TABER PO PRN (10:48)
--- NOTE | 2022-08-22 19:20 | NUR ---
ENDORSED PT TO WOOD CALKER FOR CONTINUITY OF CARE. PT STABLE.
--- NOTE | 2022-08-22 20:00 | NUR ---
HAND-OFF REPORT FROM HAYDE AVALOS.ENDORSED: MAG AND POTASSIUM REPLACED. MAG LEVEL 1.4 AND 2 GRAM RIDER GIVEN TOLERATED WELL. POTASSIUM 3.0 AND TOTAL OF 60 K DUR GIVEN.ONE BM. CONTINUE SINUS RHYTHM.REMAINS ON HI NICHOLE. LEFT NEPHROSTOMY WITH CONTINUED GOOD OUTPUT. RECEIVED PT ON POTTY CHAIR. LARGE SOFT STOOL. ASSISTED BACK TO BED. SPONGE BATH GOWN CHANGE AND FRESH PADS GIVEN. ASSISTED FOR PROPER BODY ALIGNMENT AND COMFORT. PT TEACHING NOT TO GET OOB ALONE BUT TO USE CALL LIGHT AND WAIT FOR ASSISTANCE. HI-FLOW CONTINUES ORDERED.
--- NOTE | 2022-08-22 20:20 | NUR ---
TOOK PT OFF HFNC AND PLACED ON 10L BUBBLE CANNULA. PT CHRISTI WELL.
[2022-08-23] VITALS: BP 118/47
[2022-08-23] MEDS: ALBUTEROL SULFATE/IPRATROPIU 3 ML SOL IH SCH ×4 (00:29→19:23)
--- NOTE | 2022-08-23 02:22 | NUR ---
PT RESTING WELL. NO RESP DISTRESS.
[2022-08-23 04:00] VITALS: BP 128/56
--- NOTE | 2022-08-23 06:30 | NUR ---
HI-NICHOLE D/C AND [address]. TOLERATING WELL THUS FAR. ENDORSE TO Gus AUSTIN FOR CONTINUITY OF CARE. RELINQUISHED CARE OF PT AT THIS TIME.
[2022-08-23 07:08] LABS: BASOPHILS # (AUTO) 0.1 K/uL (0.00-0.22); BASOPHILS % (AUTO) 0.9 % (0.0-2.0); EOSINOPHILS # (AUTO) 0.6 K/uL (0-0.4); EOSINOPHILS % (AUTO) 7.4 % (0.0-4.0); HEMATOCRIT 23.6 % (36-48); HEMOGLOBIN 7.8 g/dL (12.0-16.0); LYMPHOCYTES # (AUTO) 1.6 K/uL (2.5-16.5); LYMPHOCYTES % (AUTO) 18.4 % (20.5-51.1); MEAN CORPUSCULAR HEMOGLOBIN 27 pg (27-31); MEAN CORPUSCULAR HGB CONC 33 g/dL (33-37); MEAN CORPUSCULAR VOLUME 81.4 fL (80-94); MONOCYTES # (AUTO) 1.1 K/uL (0.8-1.0); MONOCYTES % (AUTO) 13.1 % (1.7-9.3); NEUTROPHILS # (AUTO) 5.3 K/uL (1.8-7.7); NEUTROPHILS % (AUTO) 60.2 % (42.2-75.2); PLATELET COUNT (AUTO) 388 K/uL (140-450); RED CELL DISTRIBUTION WIDTH 18.6 % (11.6-13.7); WHITE BLOOD COUNT (AUTO) 8.7 K/uL (4.8-10.8)
[2022-08-23 07:13] LABS: ANION GAP 10.8 (8-16); CARBON DIOXIDE 32.7 mmol/L (21-32); CREATININE 2.2 mg/dL (0.6-1.3); MAGNESIUM 1.8 mg/dL (1.8-2.4); PHOSPHORUS 4.5 mg/dL (2.5-4.9); POTASSIUM 3.5 mmol/L (3.5-5.1)
[2022-08-23 08:00] VITALS: BP 119/52
--- NOTE | 2022-08-23 08:00 | NUR ---
DR. VILLAGOMEZ NOTIFIED OF PATIENTS LAB RESULTS FOR 08/23/21 AND HGB LEVEL 7.8 NO NEW ORDERS AT THIS TIME.
--- NOTE | 2022-08-23 08:00 | NUR ---
PATIENT ALERT AND VERBALLY RESPONSIVE. MONGOLIAN SPEAKING. A&O X4 FORGETFUL. STABLE AND AFEBRILE. BREATHING EVEN AND NON LABORED. NO SOB OR DYSPNEA. CONTINUED ON O2 VIA NC. DENIES PAIN. CONTINUED NORMAL SINUS RHYTHM. CONTINENT OF BOWEL. NEPHROSTOMY ON LEFT SIDE. NEPHROSTOMY SITE DRESSING CHANGE PROVIDED. ADMITTED WITH DX:PNA AND GI BLEED. IV INTACT AND SALINE LOCKED. IV ATB ORDERED FOR ESBL URINE. NO ADVERSE REACTIONS NOTED. CONTINUE ON CONTACT PRECAUTIONS. ABLE TO TRANSFER WITH STAND BY ASSIST. USES BEDSIDE COMMODE FOR BM. ASSISTED WITH PERICARE. NEPHROSTOMY TUBE CARE PROVIDED DRAINING YELLOW URINE. ALL NEEDS MET. CALL LIGHT IN REACH. BED LOCKED IN LOWEST POSITION. REMINDED PATIENT TO USE CALL LIGHT IN NEED OF ASSISTANCE. PATIENT VERBALIZED UNDERSTANDING. CONTINUE PLAN OF CARE.
--- NOTE | 2022-08-23 08:14 | NUR ---
RECEIVED ON SUPPLEMENTAL OXYGEN AT 10 LPM VIA CURAPLEX NASAL CANNULA WITH A BUBBLE HUMIDIFIER SATURATION 100% POST HHN THERAPY TITRATED FIO2 TO 7 LPM EARLY CHILDHOOD COORDINATOR TO MONITOR TITRATED FIO2 TOLERATED EARLY CHILDHOOD COORDINATOR TO NOTIFY AM ROBBIE
[2022-08-23] MEDS: MEROPENEM 500 MG in NACL 0.9% 50 ML IV SCH ×2 (09:39→22:15)
[2022-08-23] MEDS: FUROSEMIDE 40 MG/4 ML VIAL IVP SCH ×2 (09:42→22:15)
[2022-08-23] MEDS: PANTOPRAZOLE 40 MG INJ VIAL IVP SCH ×2 (09:43→22:15)
[2022-08-23 12:00] VITALS: BP 116/56
--- NOTE | 2022-08-23 13:37 | NUR ---
SATURATION 100% ON SUPPLEMENTAL OXYGEN AT 7 LPM VIA NC POST HHN THERAPY TITRATED FIO2 TO 4 LPM
[2022-08-23 16:00] VITALS: BP 151/69
[2022-08-23] MEDS ORDERED: MAG SULF 2000 MG/WATER PREMIX 50 ML IV SCH (16:00)
[2022-08-23] MEDS ORDERED: acetaZOLAMIDE sodium 250 MG in NACL 0.9% 50 ML IV SCH (16:30)
--- NOTE | 2022-08-23 17:10 | NUR ---
NORMAN/NOUGAT CUTTER MACHINE NOTIFIED OF OXYGEN TITRATION TO 4 LPM VIA NC
--- NOTE | 2022-08-23 19:30 | NUR ---
RECEIVED REPORT FROM DAY SHIFT NURSE NORMAN FOR CONTINUITY OF CARE. PATIENT IS A&O X4, LIBERIAN SPEAKING. PATIENT IS ON NC 4L WITH BUBBLER. IV IS A 20G LAC, NO FLUIDS RUNNING (SALINE LOCKED). PATIENT IS RESTING, LYING SUPINE. BED IS IN LOWEST POSITION, WHEELS LOCKED, CALL LIGHT IN PLACE. WILL CONTINUE TO OBSERVE PATIENT.
[2022-08-23 20:00] VITALS: BP 131/55
[2022-08-24] VITALS: BP 122/49
--- NOTE | 2022-08-24 | NUR ---
MEDICATIONS ADMINISTERED TO PATIENT WITHOUT ANY ISSUES. PATIENT TOLERATED WELL. NEPHROSTOMY BAG IS STILL FUNCTIONING APPROPRIATELY. WILL CONTINUE TO OBSERVE PATIENT.
[2022-08-24 04:00] VITALS: BP 141/53
--- NOTE | 2022-08-24 04:00 | NUR ---
PATIENT IS SLEEPING. BREATHING IS NORMAL WITH SYMMETRICAL RISE AND FALL OF CHEST. WILL CONTINUE TO OBSERVE PATIENT.
[2022-08-24 07:00] LABS: BASOPHILS # (AUTO) 0.1 K/uL (0.00-0.22); BASOPHILS % (AUTO) 0.8 % (0.0-2.0); EOSINOPHILS # (AUTO) 0.7 K/uL (0-0.4); EOSINOPHILS % (AUTO) 7.9 % (0.0-4.0); HEMATOCRIT 23.4 % (36-48); HEMOGLOBIN 7.8 g/dL (12.0-16.0); LYMPHOCYTES # (AUTO) 1.6 K/uL (2.5-16.5); LYMPHOCYTES % (AUTO) 17.5 % (20.5-51.1); MEAN CORPUSCULAR HEMOGLOBIN 27 pg (27-31); MEAN CORPUSCULAR HGB CONC 33 g/dL (33-37); MEAN CORPUSCULAR VOLUME 81.4 fL (80-94); MONOCYTES # (AUTO) 1.1 K/uL (0.8-1.0); MONOCYTES % (AUTO) 12.1 % (1.7-9.3); NEUTROPHILS # (AUTO) 5.5 K/uL (1.8-7.7); NEUTROPHILS % (AUTO) 61.7 % (42.2-75.2); PLATELET COUNT (AUTO) 427 K/uL (140-450); RED BLOOD CELL COUNT(AUTO) 2.87 MIL/uL (4.20-5.40); RED CELL DISTRIBUTION WIDTH 17.9 % (11.6-13.7)
[2022-08-24 07:15] LABS: ANION GAP 10.2 (8-16); CARBON DIOXIDE 33.2 mmol/L (21-32); POTASSIUM 3.4 mmol/L (3.5-5.1)
[2022-08-24 07:21] LABS: MAGNESIUM 2.3 mg/dL (1.8-2.4); PHOSPHORUS 4.5 mg/dL (2.5-4.9)
--- NOTE | 2022-08-24 07:50 | NUR ---
ENDORSED TO DAY SHIFT NURSE JAMES FOR CONTINUITY OF CARE. PATIENT IS STABLE.
[2022-08-24 08:00] VITALS: BP 120/78
--- NOTE | 2022-08-24 08:24 | NUR ---
GOT REPORT FROM THE NIGHT NURSE, PT ASLEEP NO SOB [id number]
[2022-08-24] MEDS: FUROSEMIDE 40 MG/4 ML VIAL IVP SCH (08:49)
[2022-08-24] MEDS: PANTOPRAZOLE 40 MG INJ VIAL IVP SCH (08:49)
[2022-08-24] MEDS: POTASSIUM CHLORIDE 10 MEQ TABER PO PRN (08:50)
[2022-08-24] MEDS: MEROPENEM 500 MG in NACL 0.9% 50 ML IV SCH (08:51)
[2022-08-24] MEDS ORDERED: ALBU3SOL83 IH (09:50)
[2022-08-24] MEDS ORDERED: FURO-570 PO (09:50)
[2022-08-24] MEDS ORDERED: MERO500P9 IV (09:50)
[2022-08-24 12:00] VITALS: BP_SYST 120; BP_SYST 126; BP_DIAS 71; BP_DIAS 78
--- NOTE | 2022-08-24 16:20 | NUR ---
PT DISCHARGED TO [facility], LEFT HL IN PLACE PER DR ORDER, ID AND EKG IS DISCONNECTED. DISCHARGE INSTRUCTION IS GIVEN. PT LEFT UNIT WITHOUT DISCOMFORT AND SOB.[id number]
== END 2022-08-24 16:20 | DRG 871 ==
LOC: MED 10:21 → MTU 14:03
PROVIDERS: ADMIT Internal Medicine; ATTEND Internal Medicine
PROC: 30233N1 Transfusion of Nonautologous Red Blood Cells into Peripheral Vein, Percutaneous Approach (ICD-10-PCS; principal; 2022-08-14)
PROC: 5A09357 Assistance with Respiratory Ventilation, Less than 24 Consecutive Hours, Continuous Positive Airway Pressure (ICD-10-PCS; 2022-08-14)
PROC: 5A09357 Assistance with Respiratory Ventilation, Less than 24 Consecutive Hours, Continuous Positive Airway Pressure (ICD-10-PCS; 2022-08-15)
PROC: 5A09457 Assistance with Respiratory Ventilation, 24-96 Consecutive Hours, Continuous Positive Airway Pressure (ICD-10-PCS; 2022-08-15)
PROC: 5A0935A Assistance with Respiratory Ventilation, Less than 24 Consecutive Hours, High Flow/Velocity Cannula (ICD-10-PCS; 2022-08-16)
PROC: 5A09357 Assistance with Respiratory Ventilation, Less than 24 Consecutive Hours, Continuous Positive Airway Pressure (ICD-10-PCS; 2022-08-16)
PROC: 5A0935A Assistance with Respiratory Ventilation, Less than 24 Consecutive Hours, High Flow/Velocity Cannula (ICD-10-PCS; 2022-08-17)
PROC: 5A09357 Assistance with Respiratory Ventilation, Less than 24 Consecutive Hours, Continuous Positive Airway Pressure (ICD-10-PCS; 2022-08-17)
PROC: 5A0935A Assistance with Respiratory Ventilation, Less than 24 Consecutive Hours, High Flow/Velocity Cannula (ICD-10-PCS; 2022-08-18)
PROC: 5A0935A Assistance with Respiratory Ventilation, Less than 24 Consecutive Hours, High Flow/Velocity Cannula (ICD-10-PCS; 2022-08-19)
PROC: 5A0935A Assistance with Respiratory Ventilation, Less than 24 Consecutive Hours, High Flow/Velocity Cannula (ICD-10-PCS; 2022-08-21)
PROC: 5A0935A Assistance with Respiratory Ventilation, Less than 24 Consecutive Hours, High Flow/Velocity Cannula (ICD-10-PCS; 2022-08-22)
DX: A41.59 Other Gram-negative sepsis (principal); I21.4 Non-ST elevation (NSTEMI) myocardial infarction; J96.01 Acute respiratory failure with hypoxia; J18.9 Pneumonia, unspecified organism; N17.0 Acute kidney failure with tubular necrosis; I50.21 Acute systolic (congestive) heart failure; I42.9 Cardiomyopathy, unspecified; Z68.41 Body mass index [BMI] 40.0-44.9, adult; N13.6 Pyonephrosis; I13.0 Hypertensive heart and chronic kidney disease with heart failure and stage 1 through stage 4 chronic kidney disease, or unspecified chronic kidney disease; J81.1 Chronic pulmonary edema; C67.9 Malignant neoplasm of bladder, unspecified; D64.9 Anemia, unspecified; Z66 Do not resuscitate; K40.90 Unilateral inguinal hernia, without obstruction or gangrene, not specified as recurrent; E66.01 Morbid (severe) obesity due to excess calories; D69.6 Thrombocytopenia, unspecified; Z20.822 Contact with and (suspected) exposure to COVID-19; N18.9 Chronic kidney disease, unspecified; Z86.718 Personal history of other venous thrombosis and embolism; Z85.51 Personal history of malignant neoplasm of bladder; Z93.6 Other artificial openings of urinary tract status
CPT/HCPCS: 36415; 36600; 71045; 76770; 80048; 80053; 80202; 81001; 82570; 82803; 83605; 83735; 83880; 84100; 84300; 84484; 85025; 85379; 85384; 85610; 85730; 86886; 86900; 86901; 86920; 87040; 87081; 87086; 93005; 94640; 94660; 96372; 96374; 96375; 99291; C9113; J0696; J1120; J1815; J1940; J2185; J2270; J2543; J3370; J3475; J7060; P9016; Q0092

== ENCOUNTER 2022-08-30 11:05 | Inpatient (IN) | payer OTHER ==
[~2022-08-30] VITALS: Ht 152.4 cm; Wt 104.3 kg
[~2022-08-30 11:05] MED LIST: ALBU3SOL83 IH; FURO-570 PO; MERO500P9 IV
--- NOTE | 2022-08-30 11:08 | NUR ---
BIBA TO BED 8
[2022-08-30 11:11] VITALS: BP 156/78
--- NOTE | 2022-08-30 11:21 | NUR ---
Note undone in EDM - 08/30/22 at 1509 by PHSEP 72YO FEMALE PT BIBA [facility] C/O NEPHROSTOMY TUBE LEAK X2DAYS. L NEPHROSTOMY IN PLACE , REDNESS NOTED AROUND W/ URINE ON DRESSING. STATES TUBE PLACEMENT ON 06/2022 . DENIES PAIN, N/V, FEVER OR CHILLS. PT AAOX4, AMB W/ ASSIST. COMORAN SPEAKING HX: CKD, VENTRAL HERNIA, GERD, COLON AND BLADDER CANCER // PHX: HTN NKA
--- NOTE | 2022-08-30 11:21 | NUR ---
72YO FEMALE PT BIBA [facility] C/O NEPHROSTOMY TUBE LEAK X2DAYS. L NEPHROSTOMY IN PLACE , REDNESS NOTED AROUND W/ URINE ON DRESSING. STATES TUBE PLACEMENT ON 06/2022 . ON 2L VIA NC AT BASELINE. DENIES PAIN, N/V, FEVER OR CHILLS. PT AAOX4, AMB W/ ASSIST. TUNISIAN SPEAKING HX: CKD, VENTRAL HERNIA W/O OBSTUCTION , GERD, ACUTE RESPIRATORY FAILURE, COLON AND BLADDER CANCER // PHX: HTN NKA
--- NOTE | 2022-08-30 11:38 | NUR ---
MD LUU AT BEDSIDE FOR EVALUATION
--- NOTE | 2022-08-30 11:59 | NUR ---
pt swabbed for covid(jaime). walked and handed to lab
[2022-08-30 12:42] LABS: BASOPHILS # (AUTO) 0.1 K/uL (0.00-0.22); BASOPHILS % (AUTO) 1.1 % (0.0-2.0); EOSINOPHILS # (AUTO) 0.4 K/uL (0-0.4); EOSINOPHILS % (AUTO) 3.4 % (0.0-4.0); HEMATOCRIT 22.6 % (36-48); HEMOGLOBIN 7.4 g/dL (12.0-16.0); LYMPHOCYTES # (AUTO) 1.1 K/uL (2.5-16.5); LYMPHOCYTES % (AUTO) 10.5 % (20.5-51.1); MEAN CORPUSCULAR HEMOGLOBIN 27 pg (27-31); MEAN CORPUSCULAR HGB CONC 33 g/dL (33-37); MEAN CORPUSCULAR VOLUME 82.3 fL (80-94); MONOCYTES # (AUTO) 1.4 K/uL (0.8-1.0); MONOCYTES % (AUTO) 12.9 % (1.7-9.3); NEUTROPHILS # (AUTO) 7.6 K/uL (1.8-7.7); NEUTROPHILS % (AUTO) 72.1 % (42.2-75.2); PLATELET COUNT (AUTO) 434 K/uL (140-450); RED BLOOD CELL COUNT(AUTO) 2.74 MIL/uL (4.20-5.40); RED CELL DISTRIBUTION WIDTH 17.7 % (11.6-13.7); WHITE BLOOD COUNT (AUTO) 10.6 K/uL (4.8-10.8)
[2022-08-30 12:58] LABS: PROTHROMBIN TIME 10.4 secs (10.8-13.4)
[2022-08-30 13:04] LABS: ALBUMIN 2.4 g/dL (3.4-5.0); CARBON DIOXIDE 24.6 mmol/L (21-32); POTASSIUM 4.6 mmol/L (3.5-5.1); TOTAL BILIRUBIN 0.4 mg/dL (0.0-1.0)
[2022-08-30 13:11] LABS: CREATININE 5.9 mg/dL (0.6-1.3)
[2022-08-30] MEDS ORDERED: NACL 0.9% 1,000 ML IV ONE (13:20)
[2022-08-30 14:27] LABS: BILIRUBIN,URINE NEGATIVE (NEGATIVE); BLOOD, URINE 3+ (NEGATIVE); LEUKOCYTE ESTERASE ,URINE 3+ (NEGATIVE); NITRITE, URINE NEGATIVE (NEGATIVE); PH,URINE 5.5 (5.0-9.0); UGLUCOSE NEGATIVE (NEGATIVE)
[2022-08-30 14:31] LABS: APPEARANCE,URINE CLOUDY (CLEAR); COLOR,URINE STRAW (YELLOW)
[2022-08-30] MEDS ORDERED: MEROPENEM 500 MG in NACL 0.9% 50 ML IV ONE (14:45)
[2022-08-30 14:46] LABS: RBC,URINE NONE SEEN /HPF (0-5); WBC,URINE TOO MANY TO COUNT /HPF (0-5)
[2022-08-30 14:47] LABS: YEAST,URINE Moderate /HPF (None Seen)
[2022-08-30] MEDS ORDERED: MEROPENEM 500 MG VIAL IV ONE (14:58)
[2022-08-30] MEDS ORDERED: MEROPENEM 1,000 MG VIAL IV ONE (14:58)
[2022-08-30] MEDS ORDERED: ACET-2619 PO (15:17)
[2022-08-30] MEDS ORDERED: ASPI-1822 PO (15:18)
[2022-08-30] MEDS ORDERED: [UNRECOGNIZED DRUG - CODE] PO (15:23)
[2022-08-30] MEDS ORDERED: CALC0.2527 PO (15:23)
[2022-08-30] MEDS ORDERED: ACETAMINOPHEN 325 MG TAB PO PRN (15:35)
[2022-08-30] MEDS ORDERED: ONDANSETRON 4 MG/2 ML VIAL IVP PRN (15:35)
[2022-08-30] MEDS ORDERED: MORPHINE SULFATE 4 MG/ML SYR IVP PRN (15:35)
[2022-08-30] MEDS ORDERED: FURO40TA9 PO (15:45)
[2022-08-30] MEDS ORDERED: [UNRECOGNIZED DRUG - CODE] PO (15:45)
[2022-08-30] MEDS ORDERED: PANT40EC56 PO (15:51)
[2022-08-30] MEDS ORDERED: VITA-16 PO (15:56)
[2022-08-30] MEDS ORDERED: POTA20TA49 PO (15:56)
[2022-08-30] MEDS ORDERED: ZINC220C9 PO (15:58)
[2022-08-30] MEDS ORDERED: NYST15CR10 TP (16:08)
[2022-08-30] MEDS: NACL 0.9% 1,000 ML IV SCH (16:18)
--- NOTE | 2022-08-30 18:15 | NUR ---
pt provided w/ dinner. pt awake , repositioned and eating in bed
--- NOTE | 2022-08-30 19:17 | NUR ---
REPORT GIVEN TO AMSOUD GALLEGO. TRANSFER OF CARE AT THIS TIME
--- NOTE | 2022-08-30 19:40 | NUR ---
72 Y/O F PRESENTS WITH L OSTOMY LEAKAGE. AWAITING TRANSFER TO MED SURG UNIT. PT HAS A 22G R HAND. PT IS A&OX4, AZERBAIJANI SPEAKING ONLY. AMBULATORY WITH ASSISTANCE PMH- HERNIA, GERD, COLON/BLADDER CANCER NKA
--- NOTE | 2022-08-30 20:40 | NUR ---
AWAITING ADMISSION TO MED SURG. REPORT GIVEN TO TESS AVALOS
--- NOTE | 2022-08-30 20:40 | NUR ---
Patient will be admitted to care of JUSTIN VILLAGOMEZ. Admited to MED SURG. Will go to [id number]. Belongings list completed. Report to TESS AVALOS.
[2022-08-30 20:50] VITALS: BP 149/65
--- NOTE | 2022-08-30 20:50 | NUR ---
RECEIVED REPORT FROM ER NURSE NHI FOR CONTINUITY OF CARE. PATIENT IS A&O X4, FAROESE SPEAKING. PATIENT IS ON ROOM AIR, BREATHING IS NORMAL WITH SYMMETRICAL RISE AND FALL OF CHEST. IV IS A 22G R HAND, RUNNING NS AT 75. L NEPHROSTOMY BAG IS PRESENT. PATIENT IS LYING SEMI-FOWLERS IN BED. BED IS IN LOWEST POSITION, WHEELS LOCKED CALL LIGHT IN PLACE. WILL CONTINUE TO OBSERVE PATIENT.
--- NOTE | 2022-08-30 21:23 | NUR ---
The patient's care was reviewed and supervised by Kayla Gray RN.
--- NOTE | 2022-08-31 04:00 | NUR ---
PATIENT PULLED OUT HER IV. NEW IV WAS PLACED BY NURSE DUNLAP; NEW IV SITE IS A 22G IN THE LEFT HAND. PATIENT'S BED SHEETS AND COVERS WERE WET FROM IV. CHANGED PATIENT'S BED SHEETS, CHUCKS, AND GAVE PATIENT NEW BLANKETS. PATIENT WAS ABLE TO ROLL ON HER SIDE INDEPENDENTLY TO ASSIST IN THE CLEANING OF HER BED. PATIENT TOLERATED WELL.
[2022-08-31] MEDS: NACL 0.9% 1,000 ML IV SCH ×2 (04:55→06:52)
--- NOTE | 2022-08-31 07:10 | NUR ---
ENDORSED TO DAY SHIFT NURSE SILVER FOR CONTINUITY OF CARE. PATIENT IS STABLE.
--- NOTE | 2022-08-31 07:11 | NUR ---
ASSUMED CONTINUITY OF CARE. NO SIGNS AND SYMPTOMS OF ACUTE DISTRESS NOTED. INITIAL ASSESSMENT DONE. KEEP COMFORTABLE ON BED. EXPLAINED DIAGNOSIS, PLAN OF CARE, PAIN MANAGEMENT TEACHING, USE OF CALL LIGHT/BED/TV/BATHROOM. VERBALIZED UNDERSTANDING. FALL PRECAUTION APPLIED. CALL LIGHT WITHIN REACH
[2022-08-31 07:23] LABS: BASOPHILS # (AUTO) 0.1 K/uL (0.00-0.22); BASOPHILS % (AUTO) 1.3 % (0.0-2.0); EOSINOPHILS # (AUTO) 0.3 K/uL (0-0.4); EOSINOPHILS % (AUTO) 3.8 % (0.0-4.0); HEMATOCRIT 23.5 % (36-48); HEMOGLOBIN 7.7 g/dL (12.0-16.0); LYMPHOCYTES # (AUTO) 1.2 K/uL (2.5-16.5); LYMPHOCYTES % (AUTO) 13.2 % (20.5-51.1); MEAN CORPUSCULAR HEMOGLOBIN 27 pg (27-31); MEAN CORPUSCULAR HGB CONC 33 g/dL (33-37); MONOCYTES # (AUTO) 1.2 K/uL (0.8-1.0); MONOCYTES % (AUTO) 12.9 % (1.7-9.3); NEUTROPHILS # (AUTO) 6.2 K/uL (1.8-7.7); NEUTROPHILS % (AUTO) 68.8 % (42.2-75.2); PLATELET COUNT (AUTO) 405 K/uL (140-450); RED BLOOD CELL COUNT(AUTO) 2.87 MIL/uL (4.20-5.40); RED CELL DISTRIBUTION WIDTH 17.6 % (11.6-13.7)
[2022-08-31 07:45] LABS: ALBUMIN 2.2 g/dL (3.4-5.0); ANION GAP 18.1 (8-16); CARBON DIOXIDE 23.4 mmol/L (21-32); POTASSIUM 4.5 mmol/L (3.5-5.1); TOTAL BILIRUBIN 0.2 mg/dL (0.0-1.0)
[2022-08-31 08:00] VITALS: BP 122/56
--- NOTE | 2022-08-31 08:04 | NUR ---
PAGED RASHAWN FOSTER REGARDING PT. CRITICAL LAB RESULTS OF BUN 67, CREAT 5.6. INFORMED CHARGE NURSE KATHIE PALENCIA.
[2022-08-31 08:09] LABS: CREATININE 5.6 mg/dL (0.6-1.3)
--- NOTE | 2022-08-31 09:27 | NUR ---
PATIENT HAS BEEN SCREENED AND CATEGORIZED MODERATE NUTRITION RISK. PATIENT WILL BE SEEN WITHIN 3-5 DAYS OF ADMISSION. REVIEWED BY OLE SERRANO RD
[2022-08-31] MEDS: PANTOPRAZOLE 40 MG TABEC PO SCH (09:39)
--- NOTE | 2022-08-31 09:53 | NUR ---
ASSISTED TO BEDSIDE COMMODE WITH ELTINA [employer] PRODUCTION MACHINE OPERATOR. TOLERATED WELL. NO C/O PAIN. NO SOB, NOTED.
--- NOTE | 2022-08-31 11:00 | NUR ---
DR. MAN CAME AND INFORMED ONCE AGAIN OF PT. CRITICAL LAB RESULTS BUN 67, CREAT, 5.6. NO ORDER RECEIVED.
--- NOTE | 2022-08-31 13:35 | NUR ---
INSERTED NEW IV ACCESS ON RIGHT FOREARM GAUGE #22. TOLERATED WELL.
--- NOTE | 2022-08-31 15:00 | NUR ---
DISCHARGE PLANNING PT. IS A 72 YEAR OLD FEMALE ADMITTED IN [facility] ON 08/30/2022 DUE TO LEAKING NEPHROSTOMY TUBE. SW ATTEMPTED TO SPEAK TO PATIENT'S FAMILY MEMBER SYLVESTER ALFRED AT HOWEVER NO RESPONSE AND SW LEFT HER A VOICE MAIL MSG. TO CALL BACK. SW MEET WITH PATIENT AT BEDSIDE TO DISCUSS AND GATHER HER COLLATERAL INFORMATION. PATIENT WAS AWAKE AND ALERT STATED THAT SHE HAS BEEN IN THE SNF FOR ABOUT 3 MONTHS NOW AND SHE WILL LIKE TO RETURN TO THE FACILITY WHEN SHE IS READY AND STABLE TO DISCHARGE. PATIENT WAS PLEASED WITH ALL THE CARE SHE IS RECEIVING IN THE SNF. NO ISSUES WAS DISCUSSED DURING THE MEETING. SW CONTACTED PATIENT'S SNF FACILITY [facility] AT SPOKE TO RAMONA(ORDER PROCESSING SPECIALIST) ABOUT PATIENT INFORMATION, PER RAMONA PATIENT WAS SEND TO THEIR FACILITY ABOUT 3 MONTHS AGO AND IS CURRENTLY ON A CORRECTION BED HOLD. FAMILY IS SOMEWHAT INVOLVED. FAMILY WAS UNABLE TO CARE FOR PATIENT AT HOME. PER RAMONA PATIENT IS ABLE TO RETURN TO THEIR FACILITY WHEN SHE IS READY AND STABLE TO DISCHARGE PATIENT HAS NO ISSUES WITH MEDICATIONS AND MD [facility] CABRALES CARE FROM SNF. SW THANKED RAMONA FOR THE INFORMATION. ANIBAL/COOKIE WILL FOLLOW UP NEEDED.
[2022-08-31 16:00] VITALS: BP 126/55
--- NOTE | 2022-08-31 19:20 | NUR ---
REPORT GIVEN TO JJ PALENCIA. IVF INFUSING WELL. IN STABLE CONDITION.
--- NOTE | 2022-08-31 22:14 | NUR ---
RECEIVED REPORT FROM ROBBIE GARDNER FOR CONTINUITY OF CARE. PT ASLEEP. VISIBLE CHEST RISE AND FALL NOTED. NO S/SX OF DISTRESS AT THIS TIME. ON 2L NC VIA NC, BREATHING EVEN AND UNLABORED. SKIN WARM, DRY AND INTACT. IV ON R FA G22 AND L HAND G22 RUNNING FLUIDS PER MD ORDER. ALL PRECAUTIONS IN PLACE. CALL LIGHT WITHIN REACH.WILL CONTINUE TO MONITOR.
[2022-09-01] VITALS: BP 145/62
[2022-09-01] MEDS: NACL 0.9% 1,000 ML IV SCH ×2 (00:53→21:50)
--- NOTE | 2022-09-01 07:25 | NUR ---
ASSUMED CONTINUITY OF CARE. INITIAL ASSESSMENT DONE. EXPLAINED DIAGNOSIS, PLAN OF CARE, PAIN MANAGEMENT TEACHING, CONTACT ISOLATION, USE OF CALL LIGHT/BED/TV/BATHROOM. VERBALIZED UNDERSTANDING. FALL PRECAUTION APPLIED. CALL LIGHT WITHIN REACH.
[2022-09-01 07:30] LABS: ALBUMIN 2.3 g/dL (3.4-5.0); ANION GAP 18.3 (8-16); CARBON DIOXIDE 23.7 mmol/L (21-32); PHOSPHORUS 8.5 mg/dL (2.5-4.9); TOTAL BILIRUBIN 0.3 mg/dL (0.0-1.0)
[2022-09-01 07:53] LABS: BASOPHILS # (AUTO) 0.1 K/uL (0.00-0.22); BASOPHILS % (AUTO) 1.5 % (0.0-2.0); EOSINOPHILS # (AUTO) 0.4 K/uL (0-0.4); EOSINOPHILS % (AUTO) 4.8 % (0.0-4.0); HEMATOCRIT 22.7 % (36-48); HEMOGLOBIN 7.4 g/dL (12.0-16.0); LYMPHOCYTES # (AUTO) 1.6 K/uL (2.5-16.5); LYMPHOCYTES % (AUTO) 20.6 % (20.5-51.1); MEAN CORPUSCULAR HEMOGLOBIN 27 pg (27-31); MEAN CORPUSCULAR HGB CONC 33 g/dL (33-37); MONOCYTES % (AUTO) 13.2 % (1.7-9.3); NEUTROPHILS # (AUTO) 4.7 K/uL (1.8-7.7); NEUTROPHILS % (AUTO) 59.9 % (42.2-75.2); PLATELET COUNT (AUTO) 439 K/uL (140-450); RED BLOOD CELL COUNT(AUTO) 2.74 MIL/uL (4.20-5.40); RED CELL DISTRIBUTION WIDTH 17.6 % (11.6-13.7); WHITE BLOOD COUNT (AUTO) 7.8 K/uL (4.8-10.8)
[2022-09-01 08:00] VITALS: BP 150/57
[2022-09-01 08:02] LABS: CREATININE 4.9 mg/dL (0.6-1.3)
[2022-09-01] MEDS: PANTOPRAZOLE 40 MG TABEC PO SCH (09:00)
--- NOTE | 2022-09-01 09:00 | NUR ---
IV ON RIGHT FOREARM GAUGE #22 INFILTRATED, D/C AND REMOVED. INSERTED NEW IV ACCESS ON LEFT HAND GAUGE #22. TOLERATED WELL. APPLIED WARM TOWEL AND ELEVATED WITH PILLOWS RUE.
[2022-09-01] MEDS ORDERED: MIDAZOLAM 5 MG/5 ML VIAL ONE (09:21)
[2022-09-01] MEDS ORDERED: BUPIVACAINE MPF 0.25% 10 ML VIAL INJ ONE (09:21)
[2022-09-01] MEDS ORDERED: fentaNYL citrate 0.05 MG/ML VIAL ONE (09:21)
[2022-09-01] MEDS ORDERED: LIDOCAINE/EPI MPF 2%1:200000 10 ML VIAL INJ ONE (09:22)
[2022-09-01] MEDS ORDERED: FLUMAZENIL 0.5 MG/5 ML VIAL IVP ONE (09:23)
[2022-09-01] MEDS ORDERED: NALOXONE 0.4 MG/ML VIAL ONE (09:24)
--- NOTE | 2022-09-01 09:30 | NUR ---
WENT TO OR VIA [facility] FOR PROCEDURE. AWAKE, ALERT, AND ORIENTED X3. NO C/O PAIN. NO SOB, NOTED. IN STABLE CONDITION.
[2022-09-01] MEDS ORDERED: LIDOCAINE MPF 2% 100 MG/5 ML VIAL INJ ONE (09:48)
--- NOTE | 2022-09-01 11:05 | NUR ---
BACK FROM OR VIA GURNEY. IN STABLE CONDITION. KEEP COMFORTABLE ON BED. CALL LIGHT WITHIN REACH.
[2022-09-01 11:12] LABS: PROTHROMBIN TIME 10.3 secs (10.8-13.4)
[2022-09-01 12:00] VITALS: BP 159/62
--- NOTE | 2022-09-01 12:05 | NUR ---
INFORMED DR. MAN ABOUT PT. BP AT 1200 159/62. DR. MAN SAID THAT HE WILL PUT ORDER IN THE COMPUTER.
[2022-09-01] MEDS: CLONIDINE HYDROCHLORIDE 0.1 MG TAB PO PRN (12:45)
[2022-09-01 14:30] VITALS: BP 147/85
[2022-09-01 16:00] VITALS: BP 158/74
[2022-09-01] MEDS: HYDROcodone/APAP 5/325 MG 1 TAB TAB PO PRN (16:41)
--- NOTE | 2022-09-01 19:21 | NUR ---
REPORT GIVEN TO TESS PALENCIA. IVF INFUSING WELL. IN STABLE CONDITION.
--- NOTE | 2022-09-01 19:30 | NUR ---
RECEIVED REPORT FROM DAY SHIFT NURSE SILVER FOR CONTINUITY OF CARE. PATIENT IS A&O X4, TURKISH SPEAKING. PATIENT IS ON NC 2L, BREATHING IS NORMAL WITH SYMMETRICAL RISE AND FALL OF CHEST. IV IS A L HAND 22G; RUNNING NS 75. PATIENT IS AWAKE IN BED, LYING SEMI-FOWLERS POSITION. WILL CONTINUE TO OBSERVE PATIENT.
[2022-09-01 20:00] VITALS: BP 145/61
[2022-09-02] MEDS ORDERED: cefTRIAXone 1,000 MG VIAL ONE (00:24)
--- NOTE | 2022-09-02 02:30 | NUR ---
PATIENT IS NO LONGER ON CONTACT PRECAUTION DUE TO URINE. RECEIVED CRITICAL LAB FOR PATIENT AT 2310 FROM [facility]. BLOOD CULTURE POSITIVE FOR GRAM NEGATIVE RODS. NOTIFIED PROFESSIONAL SKATER (DR. VAIBHAV MEJÍA) AT 2314. DR. MEJÍA CALLED BACK 2353 AND GAVE ORDERS FOR ROCEPHIN Q24HR FOR 10 DAYS. PUT ORDER IN AND ADMINISTERED MEDICATION. AFTER PATIENT'S MEDICATION HAD FINISHED PATIENT CALLED AND REPORTED IV LEAKING. ASSESSED IV SITE AND NOTICED ARM WAS INFILTRATED. IV FLUID WAS STOPPED. AFTER MANY ATTEMPTS, NEW IV WAS PLACED BY NURSE CH. NEW IV IS A 22G IN THE RAC. PATIENT'S LEFT ARM HAS BEEN ELEVATED WITH A PILLOW TO HELP WITH SWELLING. WILL CONTINUE TO OBSERVE PATIENT.
[2022-09-02 04:00] VITALS: BP 147/70
[2022-09-02 06:56] LABS: ANION GAP 15.6 (8-16); CARBON DIOXIDE 25.4 mmol/L (21-32); CREATININE 3.8 mg/dL (0.6-1.3)
[2022-09-02 07:21] LABS: BASOPHILS # (AUTO) 0.1 K/uL (0.00-0.22); BASOPHILS % (AUTO) 1.7 % (0.0-2.0); EOSINOPHILS # (AUTO) 0.5 K/uL (0-0.4); HEMATOCRIT 22.4 % (36-48); HEMOGLOBIN 7.3 g/dL (12.0-16.0); LYMPHOCYTES # (AUTO) 1.4 K/uL (2.5-16.5); LYMPHOCYTES % (AUTO) 18.2 % (20.5-51.1); MEAN CORPUSCULAR HEMOGLOBIN 27 pg (27-31); MEAN CORPUSCULAR HGB CONC 32 g/dL (33-37); MEAN CORPUSCULAR VOLUME 82.7 fL (80-94); MONOCYTES # (AUTO) 0.9 K/uL (0.8-1.0); MONOCYTES % (AUTO) 12.2 % (1.7-9.3); NEUTROPHILS # (AUTO) 4.7 K/uL (1.8-7.7); NEUTROPHILS % (AUTO) 60.9 % (42.2-75.2); PLATELET COUNT (AUTO) 410 K/uL (140-450); RED BLOOD CELL COUNT(AUTO) 2.71 MIL/uL (4.20-5.40); RED CELL DISTRIBUTION WIDTH 17.7 % (11.6-13.7); WHITE BLOOD COUNT (AUTO) 7.7 K/uL (4.8-10.8)
--- NOTE | 2022-09-02 07:30 | NUR ---
RECEIVED PT FROM BARK PRESS OPERATOR NURSE FOR CONTINUITY OF CARE.
--- NOTE | 2022-09-02 07:40 | NUR ---
ENDORSED TO DAY SHIFT NURSE ROXY FOR CONTINUITY OF CARE. PATIENT IS STABLE.
--- NOTE | 2022-09-02 08:25 | NUR ---
Patient's Plan of Care was discussed and reviewed with CLAMP CARRIER OPERATOR:
[2022-09-02] MEDS: NACL 0.9% 1,000 ML IV SCH ×2 (08:44→23:35)
[2022-09-02] MEDS: PANTOPRAZOLE 40 MG TABEC PO SCH (08:46)
--- NOTE | 2022-09-02 08:50 | NUR ---
ALL SCHEDULED MEDICATIONS ADMINISTERED. PT TOLERATING WELL.
--- NOTE | 2022-09-02 12:50 | NUR ---
SCHEDULED MED ADMINISTERED. PT TOLERATING WELL.
--- NOTE | 2022-09-02 13:31 | NUR ---
09/02/22 RD INITIAL ASSESSMENT COMPLETED PLEASE REFER TO NUTRITION ASSESSMENT UNDER CARE ACTIVITY FOR ESTIMATED NUTRITIONAL NEEDS. 1. RECOMMEND RENAL DIET TOLERATED 2. PROVIDED NUTRITION EDUCATION WITH HANDOUTS ON CHF 3. RD TO FOLLOW-UP 7 DAYS, LOW RISK REVIEWED BY OLE SERRANO RD
--- NOTE | 2022-09-02 13:35 | NUR ---
FLUSHED NEPHROSTOMY TUBE AND EMPTIED BAG.
[2022-09-02] MEDS ORDERED: FLUCONAZOLE 100 MG TAB PO SCH (14:00)
--- NOTE | 2022-09-02 15:00 | NUR ---
MAKING ROUNDS. PT IN BED WATCHING TV. CALL LIGHT WITHIN REACH. ALL SAFETY PRECAUTIONS IN PLACE.
[2022-09-02 16:00] VITALS: BP 154/63
--- NOTE | 2022-09-02 18:00 | NUR ---
FLUSHED NEPHROSTOMY TUBE AND EMPTIED BAG.
--- NOTE | 2022-09-02 19:13 | NUR ---
ENDORSED PT TO SONOGRAPHER NURSE FOR CONTINUITY OF CARE. PT IN STABLE CONDITION.
--- NOTE | 2022-09-02 19:30 | NUR ---
RECEIVED REPORT FROM DAY SHIFT NURSE ROXY FOR CONTINUITY OF CARE. PATIENT IS A&O X4, BELIZEAN SPEAKING. PATIENT IS ON ROOM AIR, BREATHING IS NORMAL WITH SYMMETRICAL RISE AND FALL OF CHEST. IV IS A RAC 22G; RUNNING NS 75. PATIENT IS AWAKE IN BED, LYING SEMI-FOWLERS POSITION. NEPHROSTOMY BAG SHOWING CLOUDY YELLOW URINE (PREVIOUS NIGHT URINE WAS PINK FROM PROCEDURE). WILL CONTINUE TO OBSERVE PATIENT.
[2022-09-02 20:00] VITALS: BP 159/50
[2022-09-03 04:00] VITALS: BP 143/45
[2022-09-03] MEDS: NACL 0.9% 1,000 ML IV SCH (04:52)
[2022-09-03 06:40] LABS: BASOPHILS # (AUTO) 0.2 K/uL (0.00-0.22); BASOPHILS % (AUTO) 2.5 % (0.0-2.0); EOSINOPHILS # (AUTO) 0.5 K/uL (0-0.4); LYMPHOCYTES # (AUTO) 1.6 K/uL (2.5-16.5); LYMPHOCYTES % (AUTO) 26.1 % (20.5-51.1); MEAN CORPUSCULAR HEMOGLOBIN 27 pg (27-31); MEAN CORPUSCULAR HGB CONC 33 g/dL (33-37); MEAN CORPUSCULAR VOLUME 82.8 fL (80-94); MONOCYTES # (AUTO) 0.8 K/uL (0.8-1.0); MONOCYTES % (AUTO) 12.6 % (1.7-9.3); NEUTROPHILS # (AUTO) 3.1 K/uL (1.8-7.7); NEUTROPHILS % (AUTO) 50.8 % (42.2-75.2); PLATELET COUNT (AUTO) 380 K/uL (140-450); RED BLOOD CELL COUNT(AUTO) 2.54 MIL/uL (4.20-5.40); RED CELL DISTRIBUTION WIDTH 17.4 % (11.6-13.7); WHITE BLOOD COUNT (AUTO) 6.1 K/uL (4.8-10.8)
[2022-09-03 06:50] LABS: ANION GAP 16.3 (8-16); CARBON DIOXIDE 24.4 mmol/L (21-32); POTASSIUM 3.7 mmol/L (3.5-5.1)
--- NOTE | 2022-09-03 06:55 | NUR ---
PATIENT HAS SLEPT OFF AND ON THROUGHOUT THE NIGHT WAKING PERIODICALLY. NEPHROSTOMY BAG WAS EMPTIED THREE TIMES FOR A TOTAL OF 1010 ML OF URINE. PATIENT WAS ON ROOM AIR, BUT BEGAN DE-SATING INTO THE THE MID 80'S (84-86%) WHILE SLEEPING. PLACED PATIENT BACK ON NC 2L, O2 NOW 97%. WILL ENDORSE CARE OF PATIENT TO DAY SHIFT NURSE.
[2022-09-03 07:33] LABS: HEMOGLOBIN 6.8 g/dL (12.0-16.0)
--- NOTE | 2022-09-03 07:40 | NUR ---
ENDORSED TO DAY SHIFT NURSE CLAUDIA FOR CONTINUITY OF CARE. PATIENT IS STABLE.
--- NOTE | 2022-09-03 07:41 | NUR ---
RECEIVED REPORT FROM CLAY PIGEON SETTER NURSE TESS FOR CONTINUITY OF CARE. PT AWAKE IN BED. RESPIRATIONS EVEN AND UNLABORED ON 2L, NC. NEPHROSTOMY TUBE IN PLACE, DRAINING YELLOW, CLEAR URINE. INITIAL ASSESSMENT DONE. POC DISCUSSED. CALL LIGHT WITHIN REACH. SAFETY PRECAUTIONS IN PLACE.
[2022-09-03 08:00] VITALS: BP 143/50
[2022-09-03] MEDS: PANTOPRAZOLE 40 MG TABEC PO SCH (08:48)
--- NOTE | 2022-09-03 08:50 | NUR ---
ADMINISTERED DUE MEDS. PT TOLERATED WELL.
--- NOTE | 2022-09-03 11:45 | NUR ---
RT AT BEDSIDE AND PLACED PT TO RA SATTING AT 96%. PT CLOSELY MONITORED. Addendum: 09/03/22 at 1318 by Esvin Bell LVN FOR DIFFERENT PT.
--- NOTE | 2022-09-03 14:48 | NUR ---
DR MAN AT BEDSIDE. INFORMED MD OF BLOOD CX RESULT.
--- NOTE | 2022-09-03 15:30 | NUR ---
STARTED BLOOD TRANSFUSION. NO BLOOD TRANSFUSION REACTION NOTED. V/S WITHIN NORMAL LIMITS.
[2022-09-03 16:00] VITALS: BP 170/62
[2022-09-03] MEDS: CLONIDINE HYDROCHLORIDE 0.1 MG TAB PO PRN (16:26)
--- NOTE | 2022-09-03 18:05 | NUR ---
PT CHECKED AND SEEN BY DR. MARTINEZ.
--- NOTE | 2022-09-03 18:30 | NUR ---
DONE WITH BLOOD TRANSFUSION. NO BLOOD TRANSFUSION REACTION NOTED. RESUMED IVF. PT SITTING IN BED, EATING DINNER. NO DISTRESS NOTED. SAFETY PRECAUTIONS IN PLACE.
[2022-09-03] MEDS: MEROPENEM 500 MG in NACL 0.9% 50 ML IV SCH (18:42)
--- NOTE | 2022-09-03 19:30 | NUR ---
RECEIVED REPORT FROM DAY SHIFT NURSE FOR CONTINUITY OF CARE. PT STABLE. LEFT NEPHROSTOMY TUBE TO GRAVITY FLOW. CLEAR PALE YELLOW URINE. OFFERS NO C/O. ALL SAFETY MEASURES IN PLACE. CONTINUE TO MONITOR AND ASSIST NEEDED.
--- NOTE | 2022-09-03 19:37 | NUR ---
ENDORSED PT TO STORY TELLER NURSE NICOLÁS FOR CONTINUITY OF CARE. ALL NEEDS MET THROUGHOUT SHIFT. PT IS IN STABLE CONDITION.
--- NOTE | 2022-09-03 21:00 | NUR ---
LEFT NEPHROSTOMY TUBE EMPTIED. 250 ML CLEAR YELLOW NON-FOUL SMELLING URINE. CONTACT ISO MAINTAINED. DENIES PAIN OR NEEDS. INSTRUCTED B/P 178/66 HR 73. WILL CHECK IN ONE HOUR. UNABLE TO GIVE CATAPRESS AT THIS TIME TIME PARAMETERS NOT MET. PT ASYMPTOMATIC.
[2022-09-04] VITALS: BP 158/52
--- NOTE | 2022-09-04 00:30 | NUR ---
PT CONTINUES SAME. STABLE. B/P 158/52 HOLD PRN CATAPRES PER PARAMETERS. CONTINUE TO MONITOR AND ASSIST.
[2022-09-04] MEDS: NACL 0.9% 1,000 ML IV SCH ×2 (02:15→15:35)
[2022-09-04 04:00] VITALS: BP 164/56
--- NOTE | 2022-09-04 04:00 | NUR ---
750 MLS EMPTIED FROM LEFT NEPHROSTOMY TUBE.
[2022-09-04 06:24] LABS: BASOPHILS # (AUTO) 0.2 K/uL (0.00-0.22); EOSINOPHILS # (AUTO) 0.6 K/uL (0-0.4); EOSINOPHILS % (AUTO) 7.1 % (0.0-4.0); HEMATOCRIT 27.7 % (36-48); HEMOGLOBIN 8.9 g/dL (12.0-16.0); LYMPHOCYTES # (AUTO) 1.9 K/uL (2.5-16.5); MEAN CORPUSCULAR HEMOGLOBIN 26 pg (27-31); MEAN CORPUSCULAR HGB CONC 32 g/dL (33-37); MEAN CORPUSCULAR VOLUME 81.9 fL (80-94); MONOCYTES # (AUTO) 0.9 K/uL (0.8-1.0); MONOCYTES % (AUTO) 10.9 % (1.7-9.3); NEUTROPHILS # (AUTO) 4.6 K/uL (1.8-7.7); PLATELET COUNT (AUTO) 373 K/uL (140-450); RED BLOOD CELL COUNT(AUTO) 3.38 MIL/uL (4.20-5.40); RED CELL DISTRIBUTION WIDTH 16.7 % (11.6-13.7)
[2022-09-04] MEDS: MEROPENEM 500 MG in NACL 0.9% 50 ML IV SCH ×2 (06:26→17:28)
--- NOTE | 2022-09-04 06:30 | NUR ---
B/P 164/56 HR 73 CATAPRES 0.1MG PO GIVEN.
[2022-09-04] MEDS: CLONIDINE HYDROCHLORIDE 0.1 MG TAB PO PRN (06:45)
[2022-09-04 06:53] LABS: ANION GAP 12.9 (8-16); CARBON DIOXIDE 24.6 mmol/L (21-32); CREATININE 2.5 mg/dL (0.6-1.3); POTASSIUM 3.5 mmol/L (3.5-5.1)
--- NOTE | 2022-09-04 07:15 | NUR ---
RECEIVED REPORT FROM PRODUCT DEVELOPMENT SCIENTIST NURSE ONRMAN FOR CONTINUITY OF CARE. PT AWAKE IN BED. RESPIRATIONS EVEN AND UNLABORED ON 2L NC. NEPHROSTOMY TUBE DRAINING WELL. IVF RUNNING. INITIAL ASSESSMENT DONE. POC DISCUSSED WITH PT AND RN SOM ALDRIDGE. CALL LIGHT WITHIN REACH. SAFETY PRECAUTIONS IN PLACE.
--- NOTE | 2022-09-04 07:30 | NUR ---
REPORT GIVEN TO RETURNING A.M NURSE. 1000 MLS YELLOW URINE OUT OF LEFT NEPHROSTOMY TUBE THIS SHIFT. DENIES PAIN. MERREM ORDERED. NO REACTION. H&H TRENDING UP POST TRANSFUSION. RELINQUISHED CARE OF PT AT THIS TIME.
[2022-09-04 08:00] VITALS: BP 148/45
[2022-09-04] MEDS: FLUCONAZOLE 100 MG TAB PO SCH (08:34)
[2022-09-04] MEDS: PANTOPRAZOLE 40 MG TABEC PO SCH (08:34)
--- NOTE | 2022-09-04 08:40 | NUR ---
ADMINISTERED DUE MEDS. PT TOLERATED WELL.
--- NOTE | 2022-09-04 13:55 | NUR ---
PT CHECKED AND SEEN BY DR MAN.
--- NOTE | 2022-09-04 14:05 | NUR ---
PT CHECKED AND SEEN BY DR MARTINEZ.
[2022-09-04 16:00] VITALS: BP 148/64
--- NOTE | 2022-09-04 17:18 | NUR ---
ASSISTED PT TO BEDSIDE COMMODE. HAD BM. PT REMAINED CLEAN AND DRY. NO DISTRESS NOTED. NO COMPLAINTS OF PAIN. PT BACK TO BED. SAFETY PRECAUTIONS IN PLACE.
--- NOTE | 2022-09-04 19:15 | NUR ---
ENDORSED PT TO HOME ECONOMIST NURSE ENE FOR CONTINUITY OF CARE. ALL NEEDS MET THROUGHOUT SHIFT. PT IS STABLE.
--- NOTE | 2022-09-04 19:16 | NUR ---
RECD. RESTING IN BED, AWAKE, A/OX3. RESPIRATION EVEN AND UNLABORED. ON 02 A 2 LITERS VIA N/C, 02 SAT - 98%. WATCHING TV. LEFT NEPHROSTOMY TUBE DRAINING CLEAR LIGHT YELLOW URINE. USES THE BSC WITH ASSISTANCE. DENIES PAIN 0/10.
--- NOTE | 2022-09-04 20:00 | NUR ---
Patient's Plan of Care was discussed and reviewed with JULIÁN: ENE
--- NOTE | 2022-09-04 22:00 | NUR ---
ASSISTED TO BSC TO HAVE BM. ABLE TO HAVE A LARGE SOFT BM. ASSISTED TO CLEANSED. HAD ACCIDENT ON BED, BEFORE GOING TO BSC. BEDDINGS CHANGED. BACK TO BED, SAFETY MAINTAINED.
[2022-09-05] VITALS: BP 143/96
--- NOTE | 2022-09-05 | NUR ---
SLEEPING COMFORTABLY IN BED, RESPIRATION EVEN AND UNLABORED. CALL LIGHT IN REACH.
--- NOTE | 2022-09-05 02:00 | NUR ---
ON HER LEFT SIDE, COMFORTABLY ASLEEP.
--- NOTE | 2022-09-05 05:00 | NUR ---
SLEEPING IN BED, ABLE TO TAKE OUT 700 ML URINE FROM NEPHROSTOMY TUBE.
[2022-09-05] MEDS: NACL 0.9% 1,000 ML IV SCH ×2 (05:18→17:54)
[2022-09-05] MEDS: MEROPENEM 500 MG in NACL 0.9% 50 ML IV SCH ×2 (05:40→17:51)
--- NOTE | 2022-09-05 06:30 | NUR ---
STILL SLEEPING COMFORTABLY IN BED. NO COMPLAINT OF PAIN DURING THE SHIFT. ALL NEEDS ATTENDED.
[2022-09-05 06:40] LABS: BASOPHILS # (AUTO) 0.1 K/uL (0.00-0.22); EOSINOPHILS # (AUTO) 0.4 K/uL (0-0.4); EOSINOPHILS % (AUTO) 4.7 % (0.0-4.0); HEMATOCRIT 24.1 % (36-48); HEMOGLOBIN 7.9 g/dL (12.0-16.0); LYMPHOCYTES # (AUTO) 1.5 K/uL (2.5-16.5); MEAN CORPUSCULAR HEMOGLOBIN 27 pg (27-31); MEAN CORPUSCULAR HGB CONC 33 g/dL (33-37); MEAN CORPUSCULAR VOLUME 80.6 fL (80-94); MONOCYTES # (AUTO) 0.7 K/uL (0.8-1.0); MONOCYTES % (AUTO) 9.1 % (1.7-9.3); NEUTROPHILS # (AUTO) 5.3 K/uL (1.8-7.7); NEUTROPHILS % (AUTO) 66.2 % (42.2-75.2); PLATELET COUNT (AUTO) 316 K/uL (140-450); RED BLOOD CELL COUNT(AUTO) 2.99 MIL/uL (4.20-5.40); WHITE BLOOD COUNT (AUTO) 8.1 K/uL (4.8-10.8)
[2022-09-05 07:42] LABS: ANION GAP 13.5 (8-16); CARBON DIOXIDE 23.8 mmol/L (21-32); CREATININE 2.1 mg/dL (0.6-1.3); POTASSIUM 3.3 mmol/L (3.5-5.1)
[2022-09-05 08:00] VITALS: BP 128/46
[2022-09-05] MEDS: HYDROcodone/APAP 5/325 MG 1 TAB TAB PO PRN (09:01)
[2022-09-05] MEDS: PANTOPRAZOLE 40 MG TABEC PO SCH (09:02)
[2022-09-05] MEDS ORDERED: POTASSIUM CHLORIDE 10 MEQ TABER PO ONE (12:35)
[2022-09-05] MEDS ORDERED: PANT40EC56 PO (14:10)
[2022-09-05] MEDS ORDERED: MERO500V16 IV (14:10)
[2022-09-05] MEDS ORDERED: FLUC100T1 PO (14:10)
--- NOTE | 2022-09-05 15:23 | NUR ---
CALLED [facility] THAT TEOFILO HAS DC ORDER, SPOKE TO SUSHANT AND SHE SAID SHE NEEDS AUTHORIZATION . NOTIFIED PATIENT CONSUMER MARKETER
[2022-09-05 16:00] VITALS: BP 154/58
--- NOTE | 2022-09-05 16:02 | NUR ---
RN RECEIVED A DC ORDER FOR PATIENT THAT INCLUDES CONTINUING ON MEREM IV X 7 MORE DAYS. CM SPOKE WITH STAFF AT [facility], PATIENT WILL GO TO ROOM 102A ONCE AUTHORIZATION IS RECEIVED FROM [facility] AND TRANSPORT ARRANGED THROUGH THEM. RN FAXED THE PATIENTS CLINICAL PACKET AND IV ABX ORDERS TO [facility] AND [facility] FOR REVIEW.
--- NOTE | 2022-09-05 19:35 | NUR ---
RECEIVED PT FROM AM NURSE FOR CONTINUITY OF CARE. PT IS STABLE
[2022-09-06 04:00] VITALS: BP 148/64
[2022-09-06] MEDS: CLONIDINE HYDROCHLORIDE 0.1 MG TAB PO PRN (05:16)
[2022-09-06] MEDS: MEROPENEM 500 MG in NACL 0.9% 50 ML IV SCH ×2 (05:18→17:15)
[2022-09-06 08:00] VITALS: BP 143/56
[2022-09-06 08:08] LABS: BASOPHILS # (AUTO) 0.1 K/uL (0.00-0.22); BASOPHILS % (AUTO) 1.7 % (0.0-2.0); EOSINOPHILS # (AUTO) 0.6 K/uL (0-0.4); EOSINOPHILS % (AUTO) 9.8 % (0.0-4.0); HEMATOCRIT 22.9 % (36-48); HEMOGLOBIN 7.4 g/dL (12.0-16.0); LYMPHOCYTES # (AUTO) 1.3 K/uL (2.5-16.5); LYMPHOCYTES % (AUTO) 21.3 % (20.5-51.1); MEAN CORPUSCULAR HEMOGLOBIN 27 pg (27-31); MEAN CORPUSCULAR HGB CONC 32 g/dL (33-37); MEAN CORPUSCULAR VOLUME 82.4 fL (80-94); MONOCYTES # (AUTO) 0.7 K/uL (0.8-1.0); MONOCYTES % (AUTO) 11.8 % (1.7-9.3); NEUTROPHILS # (AUTO) 3.5 K/uL (1.8-7.7); NEUTROPHILS % (AUTO) 55.4 % (42.2-75.2); PLATELET COUNT (AUTO) 327 K/uL (140-450); RED BLOOD CELL COUNT(AUTO) 2.77 MIL/uL (4.20-5.40); RED CELL DISTRIBUTION WIDTH 16.8 % (11.6-13.7); WHITE BLOOD COUNT (AUTO) 6.3 K/uL (4.8-10.8)
[2022-09-06 08:15] LABS: ANION GAP 11.7 (8-16); CREATININE 1.9 mg/dL (0.6-1.3); POTASSIUM 3.7 mmol/L (3.5-5.1)
--- NOTE | 2022-09-06 08:30 | NUR ---
ASSESSMENT COMPLETED PLAN OF CARE REVIEWED DENIES PAIN AT THIS TIME ORIENTED TO ROOM AND CALL LIGHT IN REACH WILL CONITNUE TO MONITOR AND ASSESS
[2022-09-06] MEDS: FLUCONAZOLE 100 MG TAB PO SCH (08:53)
[2022-09-06] MEDS: PANTOPRAZOLE 40 MG TABEC PO SCH (08:53)
[2022-09-06] MEDS: NACL 0.9% 1,000 ML IV SCH (08:53)
--- NOTE | 2022-09-06 15:43 | NUR ---
DC PLANNING: PATIENT IS RETURNING TO [facility] ROOM # [address] CABRALES. RECEIVED AUTH # [facility] FOR TRANSPORT [id number] FOR [facility] [id number] # TO GIVE REPORT [phone] ARRANGED TRANSPORT WITH [facility] WORKER TIME 6 PM NOTIFIED JACKSON AVALOS. CM TO FOLLOW
[2022-09-06 16:00] VITALS: BP 154/66
--- NOTE | 2022-09-06 16:31 | NUR ---
NOTIFIED OF DISCHARGE REPORT CALLED TO [phone] SPOKE WITH SOLEDAD GALLEGO WHO ACCEPTED REPORT MADE AWARE ARMORED CAR GUARD AND DRIVER TIME IS 1800 OR 130 AND PT TO RECEIVE MERREPENOM IV X 7 MORE DAYS AND WILL LEAVE PT SALINE LOCK IN PLACE CALLED SYLVESTER PT DAUGHTER MADE AWARE PT IS BEING DISCHARGED BACK TO [facility] PT AWARE CN AWARE
--- NOTE | 2022-09-06 16:34 | NUR ---
[facility] PLANNING OUTREACHED TO JAYCOB, TO FOLLOW UP ON SUBWAY CAR REPAIRER OF PT. SPOKE WITH SOM WHO REPORTS PT WILL BE PICKED UP 630 PM. ENDORSED TO PT NURSE.
--- NOTE | 2022-09-06 19:45 | NUR ---
PATIENT LEFT [facility] FOR [facility] VIA NON EMERGENT TRANSPORT. PAPERS GIVEN TO TRANSPORT. PATIENT IN STABLE CONDITION.
== END 2022-09-06 19:45 | DRG 871 ==
LOC: MED 11:05 → MTU 16:08
PROVIDERS: ADMIT Internal Medicine; ATTEND Internal Medicine
PROC: 0TP5X0Z Removal of Drainage Device from Kidney, External Approach (ICD-10-PCS; 2022-09-01)
PROC: BT12YZZ Fluoroscopy of Left Kidney using Other Contrast (ICD-10-PCS; 2022-09-01)
PROC: BT42ZZZ Ultrasonography of Left Kidney (ICD-10-PCS; 2022-09-01)
PROC: 0T25X0Z Change Drainage Device in Kidney, External Approach (ICD-10-PCS; principal; 2022-09-01 10:00)
PROC: 30233N1 Transfusion of Nonautologous Red Blood Cells into Peripheral Vein, Percutaneous Approach (ICD-10-PCS; 2022-09-03)
DX: A41.59 Other Gram-negative sepsis (principal); E43 Unspecified severe protein-calorie malnutrition; I50.22 Chronic systolic (congestive) heart failure; N17.9 Acute kidney failure, unspecified; N18.4 Chronic kidney disease, stage 4 (severe); Z68.41 Body mass index [BMI] 40.0-44.9, adult; I13.0 Hypertensive heart and chronic kidney disease with heart failure and stage 1 through stage 4 chronic kidney disease, or unspecified chronic kidney disease; N13.30 Unspecified hydronephrosis; B37.49 Other urogenital candidiasis; N99.522 Malfunction of incontinent external stoma of urinary tract; B96.1 Klebsiella pneumoniae [K. pneumoniae] as the cause of diseases classified elsewhere; Z66 Do not resuscitate; N13.9 Obstructive and reflux uropathy, unspecified; C67.9 Malignant neoplasm of bladder, unspecified; D63.1 Anemia in chronic kidney disease; N26.1 Atrophy of kidney (terminal); Z20.822 Contact with and (suspected) exposure to COVID-19; Z85.51 Personal history of malignant neoplasm of bladder; Z86.718 Personal history of other venous thrombosis and embolism
CPT/HCPCS: 36415; 50432; 74018; 76770; 80048; 80053; 81001; 83735; 84100; 85025; 85610; 85730; 86886; 86900; 86901; 86920; 87040; 87081; 87086; 96361; 96365; 99285; C1729; J0696; J2001; J2185; J2250; J2310; J3010; J3490; J7060; P9016; Q0092

== ENCOUNTER 2022-10-29 09:49 | Observation (INO) | payer OTHER ==
[~2022-10-29] VITALS: Ht 162.6 cm; Wt 79.4 kg
[~2022-10-29 09:49] MED LIST changes: +ACET-2619 PO; -ALBU3SOL83 IH; +ASPI-1822 PO; +CALC0.2527 PO; +FLUC100T1 PO; -FURO-570 PO; -MERO500P9 IV; +MERO500V16 IV; +PANT40EC56 PO; +VITA-16 PO; +[UNRECOGNIZED DRUG - CODE] PO
--- NOTE | 2022-10-29 09:51 | NUR ---
BIBA BLS TO ER BED 3
[2022-10-29 09:53] VITALS: BP 128/63
[2022-10-29] MEDS ORDERED: PANTOPRAZOLE 40 MG INJ VIAL IVP ONE (10:20)
--- NOTE | 2022-10-29 10:20 | NUR ---
MD EVALUATING THE PATIENT. RECTAL EXAM WAS DONE BY MD WITH RN AT BEDSIDE.
[2022-10-29 11:12] LABS: BASOPHILS # (AUTO) 0.1 K/uL (0.00-0.22); BASOPHILS % (AUTO) 0.8 % (0.0-2.0); EOSINOPHILS # (AUTO) 0.4 K/uL (0-0.4); HEMATOCRIT 20.3 % (36-48); LYMPHOCYTES # (AUTO) 1.4 K/uL (2.5-16.5); LYMPHOCYTES % (AUTO) 17.5 % (20.5-51.1); MEAN CORPUSCULAR HEMOGLOBIN 27 pg (27-31); MEAN CORPUSCULAR HGB CONC 33 g/dL (33-37); MEAN CORPUSCULAR VOLUME 81.7 fL (80-94); MONOCYTES # (AUTO) 0.9 K/uL (0.8-1.0); NEUTROPHILS % (AUTO) 64.7 % (42.2-75.2); PLATELET COUNT (AUTO) 413 K/uL (140-450); RED BLOOD CELL COUNT(AUTO) 2.49 MIL/uL (4.20-5.40); RED CELL DISTRIBUTION WIDTH 17.8 % (11.6-13.7); WHITE BLOOD COUNT (AUTO) 7.8 K/uL (4.8-10.8)
[2022-10-29 11:18] LABS: HEMOGLOBIN 6.6 g/dL (12.0-16.0)
[2022-10-29 11:22] LABS: ALBUMIN 2.7 g/dL (3.4-5.0); ANION GAP 13.7 (8-16); CARBON DIOXIDE 25.8 mmol/L (21-32); CREATININE 2.7 mg/dL (0.6-1.3); POTASSIUM 3.5 mmol/L (3.5-5.1); TOTAL BILIRUBIN 0.1 mg/dL (0.0-1.0)
[2022-10-29 12:24] LABS: PROTHROMBIN TIME 9.9 secs (10.8-13.4)
[2022-10-29] MEDS ORDERED: NACL 0.9% 1,000 ML IV ONE (13:40)
--- NOTE | 2022-10-29 14:40 | NUR ---
Patient will be admitted to care of DR. MACKAY. Admited to M/S. Will go to room 107 A. Belongings list completed. Report to WALLACE AVALOS.
--- NOTE | 2022-10-29 14:45 | NUR ---
RECEIVED PT CARE AND REPORT FROM LUANNE AVALOS. PY ESCORTED BY GRAPHIC EDITOR TO ROOM IN WHEELCHAIR. PT IS A&OX3, APPEARS CALM, HOLDING NEPHROSTOMY TUBE BAG. NO VISIBLE S/S OF DISTRESS, DISCOMFORT, PAIN OR SOB. PT ASSISTED TO BED. BED LOW AND SEMI FOWLERS. PT ORIENTED TO CALL LIGHT IN ROOM. CONTAINER GIVEN TO PATIENT TO DRAIN NEPHROSTOMY BAG. 250ML OF CLEAR, YELLOW URINE DRAINED. WILL CONTINUE TO MONITOR.
[2022-10-29] MEDS ORDERED: ZOLPIDEM 5 MG TAB PO PRN (15:00)
[2022-10-29] MEDS ORDERED: LORazepam 1 MG TAB PO PRN (15:00)
[2022-10-29] MEDS ORDERED: ONDANSETRON 4 MG/2 ML VIAL IVP PRN (15:00)
[2022-10-29 16:00] VITALS: BP 130/80
--- NOTE | 2022-10-29 16:29 | NUR ---
RECEIVED ORDER FOR PT TO GO BACK TO SNF AND ARRANGE TRANSPORTATION FOR 10/30/2022. CALLED GARCIA FROM [facility] LOCATED AT [address] [place] [id number]. SHE SAID SHE DIDN'T RECEIVE MY FIRST FAX SO FAXED AGAIN TO HER E-FAX. LINE WAS BUSY SO CALLED HER AND LET HER KNOW THAT I FAXED PAPERWORK AGAIN IF I COULD GET THE ROOM AND DOCTOR. SHE INFORMED ME I HAVE TO WAIT FOR THE CLINICALS TO BE READ. SHE INFORMED ME THAT TOMORROW AT 0900 SKILLED NURSE LANEY WILL BE ABLE TO GIVE US BED NUMBER AND RECEIVING DOCTOR. TRANSPORTATION IS TO BE SET UP WITH [facility] . FORM WILL BE LEFT ON MY DESK WITH PACKET, ALL THAT NEED TO BE FILLED IS THE BED AT [facility] AND RECEIVING DOCTOR. FORM WILL NEED TO BE FAXED WITH FACE SHEET AND PCS FORM.
--- NOTE | 2022-10-29 17:33 | NUR ---
PATIENT HAS BEEN SCREENED AND CATEGORIZED MODERATE NUTRITION RISK. PATIENT WILL BE SEEN WITHIN 3-5 DAYS OF ADMISSION. REVIEWED BY OLE SERRANO RD
--- NOTE | 2022-10-29 17:40 | NUR ---
WENT TO BLOOD BANK TO RETRIEVE BLOOD FOR TRANSFUSION. BLOOD BANK TECH NOT PRESENT. LAB STAFF STATED THEY WERE IN THE [place].
--- NOTE | 2022-10-29 18:09 | NUR ---
CALLED BLOOD BANK TO SEE IF STAFF WAS AVAILABLE FOR BLOOD PICKUP. CALLED X2 WITH NO ANSWER.
--- NOTE | 2022-10-29 18:25 | NUR ---
1 UNIT PRBC TRANSFUSION STARTED. SET RATE AT 210ML/HR. PT STATED SHE HAS HAD TRANSFUSION BEFORE WITH NO REACTION. WILL CONTINUE TO MONITOR VITAL SIGNS AND SIGNS OF REACTION.
--- NOTE | 2022-10-29 18:43 | NUR ---
PT IS RESTING IN BED SEMI FOWLERS WITH OU CLOSED. BLOOD TRANSFUSION RUNNING AT THIS TIME WITH NO ADVERSE SIDE EFFECTS. NO VISIBLE S/S OF DISTRESS, DISCOMFORT, PAIN OR SOB. CALL LIGHT IS WITHIN REACH, ALL NEEDS MET AT THIS TIME. WILL ENDORSE TO NOC SHIFT.
--- NOTE | 2022-10-29 19:30 | NUR ---
RECEIVED REPORT FROM DAY SHIFT RN FOR CONTINUITY OF CARE. PT IS AAOX4 COMORAN SPEAKER. PT IS CURRENTLY HAVING BLOOD TRANSFUSION. NO ADVERSE REACTION NOTED. PT NOT IN ANY DISTRESS AND HAS NO COMPLAINS AT THIS TIME. POC DISCUSSED. WILL CONTINUE TO MONITOR THE PT.
[2022-10-29 20:00] VITALS: BP 146/54
--- NOTE | 2022-10-29 20:30 | NUR ---
BLOOD TRANSFUSION FINISHED. NO BLOOD TRANSFUSION REACTION NOTED.
[2022-10-29 22:40] LABS: HEMATOCRIT 23.7 % (36-48)
[2022-10-30] VITALS: BP 125/56
--- NOTE | 2022-10-30 00:35 | NUR ---
PT IS SLEEPING COMFORTABLY IN BED. NOT IN ANY DISTRESS. BREATHING EVEN AND UNLABORED. WILL CONTINUE TO MONITOR THE PT.
--- NOTE | 2022-10-30 04:05 | NUR ---
PT WAS CLEANED AND CHANGED. TOLERATED IT WELL. DENIES ANY PAIN AND HAS NO COMPLAINS AT THIS TIME. WILL CONTINUE TO MONITOR THE PT.
[2022-10-30 07:04] LABS: BASOPHILS # (AUTO) 0.1 K/uL (0.00-0.22); BASOPHILS % (AUTO) 0.8 % (0.0-2.0); EOSINOPHILS # (AUTO) 0.4 K/uL (0-0.4); EOSINOPHILS % (AUTO) 5.9 % (0.0-4.0); HEMATOCRIT 22.8 % (36-48); HEMOGLOBIN 7.7 g/dL (12.0-16.0); LYMPHOCYTES # (AUTO) 1.5 K/uL (2.5-16.5); LYMPHOCYTES % (AUTO) 20.1 % (20.5-51.1); MEAN CORPUSCULAR HEMOGLOBIN 28 pg (27-31); MEAN CORPUSCULAR HGB CONC 34 g/dL (33-37); MEAN CORPUSCULAR VOLUME 81.8 fL (80-94); MONOCYTES # (AUTO) 0.8 K/uL (0.8-1.0); MONOCYTES % (AUTO) 11.1 % (1.7-9.3); NEUTROPHILS # (AUTO) 4.6 K/uL (1.8-7.7); NEUTROPHILS % (AUTO) 62.1 % (42.2-75.2); PLATELET COUNT (AUTO) 465 K/uL (140-450); RED BLOOD CELL COUNT(AUTO) 2.78 MIL/uL (4.20-5.40); RED CELL DISTRIBUTION WIDTH 17.3 % (11.6-13.7); WHITE BLOOD COUNT (AUTO) 7.4 K/uL (4.8-10.8)
--- NOTE | 2022-10-30 07:09 | NUR ---
ENDORSED PT TO DAY SHIFT RN FOR CONTINUITY OF CARE. PT IS STABLE.
[2022-10-30 07:17] LABS: ALBUMIN 2.3 g/dL (3.4-5.0); ANION GAP 12.4 (8-16); CARBON DIOXIDE 24.5 mmol/L (21-32); CREATININE 2.3 mg/dL (0.6-1.3); MAGNESIUM 1.8 mg/dL (1.8-2.4); POTASSIUM 3.9 mmol/L (3.5-5.1); TOTAL BILIRUBIN 0.5 mg/dL (0.0-1.0)
[2022-10-30 08:00] VITALS: BP 135/43
[2022-10-30] MEDS ORDERED: DOCUSATE SODIUM 100 MG GELCAP PO SCH (09:00)
--- NOTE | 2022-10-30 13:36 | NUR ---
DC ORDERS FOR RETURN TO SNF RECEIVED. RN SPOKE WITH [facility] INTERMEDIATE, PATIENT WILL RETURN TO ROOM 102A. TRANSPORT FORM FAXED TO [facility], 1600 HOSPICE MUSIC THERAPIST TIME REQUESTED, [facility] TRANSPORT WILL CALL THE [facility] NURSES STATION TO CONFIRM ACTUAL TIME. NUMBER TO CALL FOR REPORT IS [phone]. Addendum: 10/30/22 at 1502 by Reanna Lauren RN RN RN CONFIRMED HOSPICE MUSIC THERAPIST TIME OF 1600 FOR PATIENT TO RETURN TO [facility]. TRANSPORT COMPANY IS [employer], PHONE NUMBER [phone].
--- NOTE | 2022-10-30 15:47 | NUR ---
REVIEWED DISCHARGE WITH PT. NAME BAND AND IV REMOVED. HANDED PACKET TO TRANSPORT STAFF. ALL BELONGINGS GATHERED AND PLACED IN BAG AT PT LAP. [facility] AND REPORT GIVEN TO NURSE. PT IN STABLE CONDITION ON ROUTE TO [facility].
== END 2022-10-30 15:51 ==
LOC: MED 09:49 → MTU 13:59
PROVIDERS: ADMIT Hospitalist; ATTEND Hospitalist
DX: I13.0 Hypertensive heart and chronic kidney disease with heart failure and stage 1 through stage 4 chronic kidney disease, or unspecified chronic kidney disease (principal); Z20.822 Contact with and (suspected) exposure to COVID-19; I50.9 Heart failure, unspecified; N18.9 Chronic kidney disease, unspecified; D63.1 Anemia in chronic kidney disease; Z93.6 Other artificial openings of urinary tract status; Z85.51 Personal history of malignant neoplasm of bladder; Z79.899 Other long term (current) drug therapy
CPT/HCPCS: 36415; 36430; 71045; 74176; 80053; 83735; 85018; 85025; 85610; 85730; 86886; 86900; 86901; 86920; 87426; 96374; 99291; C9113; G0378; P9016

== ENCOUNTER 2022-12-27 09:49 | Inpatient (IN) | payer OTHER ==
[~2022-12-27] VITALS: Ht 152.4 cm; Wt 72.6 kg
[~2022-12-27 09:49] MED LIST changes: -ASPI-1822 PO; -FLUC100T1 PO; -MERO500V16 IV
[2022-12-27 09:55] VITALS: BP 128/68
--- NOTE | 2022-12-27 10:09 | NUR ---
TO BED 1 VIA JILLIAN. 'S PRIMARY RN NOTIFIED
--- NOTE | 2022-12-27 10:10 | NUR ---
TRANSPORTED PATIENT TO BED 1
[2022-12-27] MEDS ORDERED: MORPHINE SULFATE 4 MG/ML SYR IVP ONE (10:30)
[2022-12-27] MEDS ORDERED: NACL 0.9% 1,000 ML IV ONE (10:30)
[2022-12-27] MEDS ORDERED: ONDANSETRON 4 MG/2 ML VIAL IVP ONE (10:30)
[2022-12-27 11:37] LABS: HEMATOCRIT 25.3 % (36-48); HEMOGLOBIN 8.2 g/dL (12.0-16.0); MEAN CORPUSCULAR HEMOGLOBIN 25 pg (27-31); MEAN CORPUSCULAR HGB CONC 32 g/dL (33-37); MEAN CORPUSCULAR VOLUME 77.8 fL (80-94); RED BLOOD CELL COUNT(AUTO) 3.26 MIL/uL (4.20-5.40); RED CELL DISTRIBUTION WIDTH 16.2 % (11.6-13.7)
[2022-12-27 11:42] LABS: WHITE BLOOD COUNT (AUTO) 29.4 K/uL (4.8-10.8)
[2022-12-27 11:51] LABS: PROTHROMBIN TIME 9.8 secs (10.8-13.4)
[2022-12-27 11:56] LABS: ALBUMIN 2.5 g/dL (3.4-5.0); ANION GAP 13.7 (8-16); ASPARTATE AMINOTRANSFERASE 14 U/L (15-37); CARBON DIOXIDE 27.4 mmol/L (21-32); CHLORIDE 98 mmol/L (98-107); GFR ARICAN-AMERICAN 9 mL/min (>90); GLUCOSE 120 mg/dL (74-106); LIPASE 53 U/L (73-393); POTASSIUM 5.1 mmol/L (3.5-5.1); SODIUM SERUM 134 mmol/L (136-145); TOTAL BILIRUBIN 0.2 mg/dL (0.0-1.0)
[2022-12-27 12:02] LABS: UREA NITROGEN, BLOOD 70 mg/dL (7-18)
[2022-12-27] MEDS ORDERED: CEFEPIME 2,000 MG in DEXTROSE 5% 100 ML IV ONE (12:05)
[2022-12-27] MEDS ORDERED: VANCOMYCIN 1,000 MG in DEXTROSE 5% 250 ML IV ONE (12:05)
[2022-12-27 12:15] LABS: BASOPHILS % (MANUAL) 0 % (0-2); BLASTS, MANUAL % 0 % (0-0); EOSINOPHILS % (MANUAL) 0 % (0-4); LYMPHOCYTES % (MANUAL) 6 % (20-46); METAMYELOCYTES % 0 % (0-0); MONOCYTES % (MANUAL) 5 % (5-12); MYELOCYTES % 0 % (0-0); OTHER CELLS,MANUAL % 0 (0-0); PLATELET COUNT (AUTO) 347 K/uL (140-450); PROMYELOCYTES % 0 % (0-0)
[2022-12-27] MEDS ORDERED: CEFEPIME 2,000 MG VIAL IV ONE (12:28)
[2022-12-27] MEDS ORDERED: ACETAMINOPHEN EXTRA STRENGTH 500 MG TAB PO ONE (12:30)
[2022-12-27] MEDS ORDERED: VANCOMYCIN 1,000 MG VIAL ONE (13:33)
[2022-12-27 13:35] LABS: BILIRUBIN,URINE NEGATIVE (NEGATIVE); BLOOD, URINE 1+ (NEGATIVE); LEUKOCYTE ESTERASE ,URINE NEGATIVE (NEGATIVE); NITRITE, URINE NEGATIVE (NEGATIVE); PH,URINE 7.5 (5.0-9.0); UGLUCOSE NEGATIVE (NEGATIVE)
[2022-12-27 13:45] LABS: APPEARANCE,URINE HAZY (CLEAR)
[2022-12-27 13:46] LABS: COLOR,URINE GREEN (YELLOW)
[2022-12-27] MEDS ORDERED: ONDANSETRON 4 MG/2 ML VIAL IVP PRN (14:10)
[2022-12-27] MEDS ORDERED: VANCOMYCIN PER PHARMACY MC PRN (14:10)
[2022-12-27] MEDS ORDERED: MORPHINE SULFATE 2 MG/ML SYR IVP PRN (14:10)
[2022-12-27] MEDS ORDERED: ACETAMINOPHEN 325 MG TAB PO PRN (14:10)
[2022-12-27] MEDS ORDERED: MAGNESIUM OXIDE 400 MG TAB PO PRN (14:10)
--- NOTE | 2022-12-27 14:27 | NUR ---
BELONGINGS LIST COMPLETE. UNABLE TO OBTAIN MED REC DUE TO PT LACK OF INFO. PT STATES SHE TAKES MEDS FOR HTN BUT UNABLE TO RECALL NAME.
[2022-12-27] MEDS: NACL 0.9% 1,000 ML IV SCH (15:07)
[2022-12-27] MEDS: MIDODRINE 5 MG TAB PO SCH ×2 (16:00→20:30)
[2022-12-27 17:35] VITALS: BP 117/43
--- NOTE | 2022-12-27 17:46 | NUR ---
Patient arrives from [facility] and has complaint of left nephrostomy dislodgement. Addendum: 12/27/22 at 1844 by Agency 06 ROBBIE RN Her primary diagnosis is severe sepsis, acute kidney injury, and bilateral hydronephrosis.
[2022-12-27 20:00] VITALS: BP 119/52
--- NOTE | 2022-12-27 21:00 | NUR ---
PROAMATINE MEDICATION IS NOT ADMINISTERED DUE TO PT BLOOD PRESSURE IS 119/52.
[2022-12-28] VITALS: BP 123/51
[2022-12-28] MEDS: NACL 0.9% 1,000 ML IV SCH ×3 (00:10→20:10)
[2022-12-28 04:00] VITALS: BP_SYST 123; BP_SYST 98; BP_DIAS 48; BP_DIAS 51
[2022-12-28 06:38] LABS: BASOPHILS # (AUTO) 0.1 K/uL (0.00-0.22); BASOPHILS % (AUTO) 0.3 % (0.0-2.0); EOSINOPHILS # (AUTO) 0.1 K/uL (0-0.4); EOSINOPHILS % (AUTO) 0.4 % (0.0-4.0); HEMATOCRIT 22.2 % (36-48); HEMOGLOBIN 7.1 g/dL (12.0-16.0); LYMPHOCYTES # (AUTO) 0.7 K/uL (2.5-16.5); LYMPHOCYTES % (AUTO) 3.4 % (20.5-51.1); MEAN CORPUSCULAR HEMOGLOBIN 25 pg (27-31); MEAN CORPUSCULAR HGB CONC 32 g/dL (33-37); MONOCYTES # (AUTO) 0.9 K/uL (0.8-1.0); MONOCYTES % (AUTO) 4.1 % (1.7-9.3); NEUTROPHILS # (AUTO) 19.9 K/uL (1.8-7.7); NEUTROPHILS % (AUTO) 91.8 % (42.2-75.2); PLATELET COUNT (AUTO) 292 K/uL (140-450); RED BLOOD CELL COUNT(AUTO) 2.85 MIL/uL (4.20-5.40); WHITE BLOOD COUNT (AUTO) 21.7 K/uL (4.8-10.8)
[2022-12-28 06:42] LABS: CARBON DIOXIDE 24.7 mmol/L (21-32); POTASSIUM 5.7 mmol/L (3.5-5.1)
--- NOTE | 2022-12-28 07:10 | NUR ---
RECEIVED BEDSIDE REPORT FROM NIGHTSHIFT NURSE. PT RESTING IN BED. NO SIGNS OF DISTRESS, NO REPORTS OF PAIN OR DISCOMFORT. REORIENTED PT TO CALL LIGHT. NO FURTHER NEEDS ARE TO BE MET AT THIS TIME, WILL CONTINUE WITH PT CARE.
[2022-12-28 08:00] VITALS: BP 122/69
[2022-12-28] MEDS ORDERED: VANCOMYCIN 750 MG in DEXTROSE 5% 250 ML IV SCH (09:00)
--- NOTE | 2022-12-28 09:07 | NUR ---
PATIENT HAS BEEN SCREENED AND CATEGORIZED HIGH NUTRITION RISK. PATIENT WILL BE SEEN WITHIN 1-2 DAYS OF ADMISSION. 12/28/22-12/29/22 FNS REFERRAL RECEIVED FOR UNHEALED WOUND ON 12/28/22. REVIEWED BY OLE SERRANO RD
[2022-12-28] MEDS: MIDODRINE 5 MG TAB PO SCH ×3 (09:30→19:19)
[2022-12-28 12:00] VITALS: BP 125/49
[2022-12-28] MEDS ORDERED: SODIUM ZIRCONIUM CYCLOSILICATE 10 GM POWD.PACK PO SCH (12:54)
[2022-12-28] MEDS ORDERED: fentaNYL citrate 0.05 MG/ML VIAL ONE (13:31)
[2022-12-28] MEDS ORDERED: LIDOCAINE 1% 500 MG/50 ML VIAL ONE (13:31)
[2022-12-28] MEDS ORDERED: MIDAZOLAM 5 MG/5 ML VIAL ONE (13:31)
--- NOTE | 2022-12-28 13:58 | NUR ---
DC PLANNING ATTEMPTED TO MEET PT AT BEDSIDE TO COMPLETE ASSESSMENT, HOWEVER STRUGGLED TO STAY AWAKE LONG ENOUGH TO ENGAGE. ANIBAL OUTREACHED TO PTS [facility], IRMA ALEGRIA TO GATHER COLLAT INFO HOWEVER, NO ANSWER, MESSAGE WAS LEFT REQUESTING A RETURN PHONE CALL. ANIBAL THEN REACHED OUT TO PTS EMERGENCY CONTACT, SYLVESTER [phone] TO GATHER COLLAT INFO HOWEVER, NO ANSWER. MESSAGE WAS LEFT REQUESTING A RETURN PHONE CALL. Addendum: 12/29/22 at 1021 by Maisha SHEETS OUTREACHED TO IRMA ALEGRIA, HOWEVER, NO ANSWER. MESSAGE LEFT REQUESTING A RETURN PHONE CALL. OUTREACHED TO PTS EMERGENCY CONTACT SYLVESTER [phone] HOWEVER, NO ANSWER, MESSAGE LEFT REQUESTING RETURN PHONE CALL.
--- NOTE | 2022-12-28 15:10 | NUR ---
12/28/22 RD INITIAL ASSESSMENT COMPLETED PLEASE REFER TO NUTRITION ASSESSMENT UNDER CARE ACTIVITY FOR ESTIMATED NUTRITIONAL NEEDS. 1. MONITOR NPO STATUS 2. RECOMMEND RENAL DIET WHEN/IF MEDICALLY APPROPRIATE TO ADVANCE DIET 3. RD TO FOLLOW-UP 3-5 DAYS, MODERATE RISK REVIEWED BY OLE SERRANO RD
[2022-12-28] MEDS: CEFEPIME 1,000 MG in DEXTROSE 5% 50 ML IV SCH (15:20)
[2022-12-28] MEDS: HYDROcodone/APAP 5/325 MG 1 TAB TAB PO PRN ×2 (15:22→20:27)
[2022-12-28] MEDS ORDERED: fentaNYL citrate 0.05 MG/ML VIAL IVP ONE (15:25)
[2022-12-28] MEDS ORDERED: MIDAZOLAM 2 MG/2 ML VIAL IVP ONE (15:25)
[2022-12-28 16:00] VITALS: BP 112/41
--- NOTE | 2022-12-28 19:15 | NUR ---
ENDORSED TO NIGHTSHIFT NURSE FOR CONTINUITY OF CARE. PT IS STABLE.
--- NOTE | 2022-12-28 19:16 | NUR ---
RECEIVED ENDORSEMENT FROM DAY SHIFT NURSE FOR CONTINUITY OF CARE. PT IS ON BED, AWAKE, ALERT AND VERBALLY RESPONSIVE. PT IS HAVING DINNER WITH 65 % CONSUMED DINNER.
[2022-12-28 20:00] VITALS: BP 101/42
--- NOTE | 2022-12-28 20:27 | NUR ---
PT COMPLAINTS OF MODERATE PAIN 6/10 ON LEFT ABDOMEN, PAIN MEDICATION NORCO ADMINISTERED ORDER. PT IS AWAKE AND ALERT.
--- NOTE | 2022-12-28 23:30 | NUR ---
PT REFUSE TO HAVE MILLER INDWELLING CATHETER. EXPLAINED RISKS AND BENEFITS X3, USING FOAM RUBBER MOLDER EVA WITH ID #[id number] IN GUINEAN LANGUAGE. PT STILL REFUSE INDWELLING CATHETER. PT STATED THAT SHE IS OK TO HAVE ONE NEPHROSTOMY BAG. DRAINED 560 CC URINE FROM LEFT NEPHROSTOMY BAG.
--- NOTE | 2022-12-28 23:40 | NUR ---
IV SITE ON LEFT AC IS DISLODGED, REINSERT IV ON RIGHT HAND 22G WITH GOOD BLOOD RETURN, PT TOLERATES WELL.
[2022-12-29] VITALS: BP 109/48
[2022-12-29 04:00] VITALS: BP 114/50
[2022-12-29] MEDS: NACL 0.9% 1,000 ML IV SCH ×2 (07:00→16:36)
[2022-12-29] MEDS: MIDODRINE 5 MG TAB PO SCH ×2 (07:00→13:00)
--- NOTE | 2022-12-29 07:00 | NUR ---
MORNING MEDICATION PROAMATINE (MIDODRINE) IS NOT ADMINISTERED, PT BP 114/50.
--- NOTE | 2022-12-29 07:20 | NUR ---
PT IS ON BED AWAKE AND ALERT. ENDORSED TO DAY SHIFT NURSE, SYLVESTER, FOR CONTINUITY OF CARE.
--- NOTE | 2022-12-29 07:21 | NUR ---
RECEIVED BESIDE REPORT FROM NIGHTSHIFT NURSE. PT IS RESTING IN BED. NO SIGNS OF DISTRESS, NO REPORTS OF PAIN OR DISCOMFORT. PT RETURNED TO SLEEP. REORIENTED PT TO CALL LIGHT. WILL CONTINUE WITH PT CARE.
[2022-12-29 07:53] LABS: BASOPHILS % (AUTO) 0.2 % (0.0-2.0); EOSINOPHILS # (AUTO) 0.5 K/uL (0-0.4); HEMATOCRIT 21.2 % (36-48); LYMPHOCYTES # (AUTO) 1.1 K/uL (2.5-16.5); LYMPHOCYTES % (AUTO) 6.1 % (20.5-51.1); MEAN CORPUSCULAR HEMOGLOBIN 25 pg (27-31); MEAN CORPUSCULAR HGB CONC 32 g/dL (33-37); MEAN CORPUSCULAR VOLUME 79.3 fL (80-94); MONOCYTES # (AUTO) 0.7 K/uL (0.8-1.0); MONOCYTES % (AUTO) 4.1 % (1.7-9.3); NEUTROPHILS # (AUTO) 15.2 K/uL (1.8-7.7); NEUTROPHILS % (AUTO) 86.6 % (42.2-75.2); PLATELET COUNT (AUTO) 266 K/uL (140-450); RED BLOOD CELL COUNT(AUTO) 2.68 MIL/uL (4.20-5.40); RED CELL DISTRIBUTION WIDTH 16.5 % (11.6-13.7); WHITE BLOOD COUNT (AUTO) 17.5 K/uL (4.8-10.8)
[2022-12-29 08:00] VITALS: BP 118/44
[2022-12-29 08:02] LABS: HEMOGLOBIN 6.7 g/dL (12.0-16.0)
[2022-12-29 08:21] LABS: ANION GAP 13.5 (8-16); CARBON DIOXIDE 25.1 mmol/L (21-32); POTASSIUM 5.6 mmol/L (3.5-5.1)
[2022-12-29 08:33] LABS: CREATININE 7.4 mg/dL (0.6-1.3)
--- NOTE | 2022-12-29 09:01 | NUR ---
PT. WITH LOW ELOY SCALE AT MODERATE TO HIGH RISK, CONTINUE TO FOLLOW PRESSURE INJURY PREVENTION INTERVENTIONS. PT. WITH S/P LEFT NEPHROSTOMY TUBE PLACEMENT. SPLIT GAUZE 4X4 DRESSING MOIST, CHANGED AND SECURED WITH TRANSPARENT DRESSING. POC DISCUSSED WITH PRIMARY RN SYLVESTER. -POSITIONING: TURN AND REPOSITION PATIENT Q 2H OR SOONER USE PILLOWS TO KEEP BONY PROMINENCES FROM DIRECT CONTACT WITH SURFACES USE REPOSITIONING WEDGES TO PROVIDE 30-DEGREE ANGLE FOR SIDE LYING POSITIONS OFFLOADING OR FOAM DRESSING TO ALL TUBING TO PREVENT MEDICAL DEVICES RELATED PRESSURE INJURY -RE-EVALUATING AND MANAGING INCONTINENCE MONITOR SKIN CONDITION DURING POSITION CHANGE DO NOT MASSAGE REDNESS, BONY PROMINENCES FREQUENT KELLY-CARE AND PROVIDE BARRIER CREAMS PRN IF SOILING MOISTURE CONTROL BY OFFER BED MULLER/URINAL /ABSORBENT PAD TO WICK AND HOLD MOISTURE KEEP SKIN DRY AND PROTECT FROM FRICTION -MANAGE FRICTION/SHEAR/MOBILITY KEEP HOB AT THE LOWEST LEVEL OF ELEVATION NO MORE THAN 30 DEGREE UNLESS OTHERWISE CONTRAINDICATED USE LIFT SHEET OR TRANSFER DEVICE TO MOVE PATIENT AND PREVENT LATERAL SHEER. PROTECT HEELS, ELBOWS BONY PROMINENCES WITH SKIN BERRIES OR FOAM DRESSING IF EXPOSED TO FRICTION OFFLOAD BILATERAL HEELS BY PLACING PILLOWS UNDER CALVES AT ALL TIMES, UNLESS OTHERWISE CONTRAINDICATED -PRESSURE REDISTRIBUTION SURFACE THERAPY EDUARDO ISOFLEX MATTRESS -NUTRITION: PLEASE FOLLOW RD RECOMMENDATIONS AND OFFER NUTRITION SUPPLEMENTS IF ORDERED. PLEASE CONTACT WOUND CARE NURSE FOR ANY QUESTION AND CHANGE OF WOUND CONDITION.
[2022-12-29] MEDS: HYDROcodone/APAP 5/325 MG 1 TAB TAB PO PRN (10:14)
[2022-12-29 12:00] VITALS: BP 102/42
[2022-12-29] MEDS: CEFEPIME 1,000 MG in DEXTROSE 5% 50 ML IV SCH (13:38)
[2022-12-29] MEDS ORDERED: SODIUM ZIRCONIUM CYCLOSILICATE 10 GM POWD.PACK PO SCH (15:00)
--- NOTE | 2022-12-29 15:45 | NUR ---
BLOOD PICKED UP FROM LAB. BLOOD ADMIN STARTED AT 1500, VITAL SIGNS STABLE UPON ADMIN. PT STABLE, VITAL SIGNS STABLE AFTER 15 MIN. INCREASED RATE. WILL CONTINUE TO MONITOR AND CONTINUE WITH PT CARE.
[2022-12-29 16:00] VITALS: BP 117/39
[2022-12-29] MEDS ORDERED: ACET-1182 PO (16:19)
[2022-12-29] MEDS ORDERED: CEFD300C3 PO (16:19)
--- NOTE | 2022-12-29 16:22 | NUR ---
RECEIVED ORDER FOR PATIENT TO GO BACK TO SNF FOR CONTINUE OF CARE. FAXED ALL PAPERWORK TO [facility] LOCATED AT [address] [place] [address]. SPOKE WITH GARCIA WHO ACCEPTED PATIENT BACK. PATIENT WILL BE GOING TO ROOM 102UND DR CABRALES. CALL FOR REPORT NUMBER . TRANSPORTATION ARRANGED WITH [facility] WITH A 1800 HORSE RIDER TIME. CHARGE NURSE SILVER AND MALGORZATA PHAN WAS LEFT A MESSAGE REGARDING THE ABOVE INFORMATION.
[2022-12-29 16:57] VITALS: BP 117/39
--- NOTE | 2022-12-29 17:35 | NUR ---
CALLED REPORT NUMBER PROVIDED IN CASE MANAGEMENT NOTE. GAVE REPORT TO PT DISCHARGE FACILITY. INFORMED PT OF DISCHARGE. PT VERBALIZE UNDERSTANDING. PAPERWORK SIGNED. RECEIVED CALL FROM WOMAN NAMED WALLACE FROM [facility] REGARDING TRANSPORTATION SERVICE. TRANSPORT: HAMIDA HUFFMAN - - AUTHORIZATION #:[id number] TRANSPORTATION SERVICE REPORTS PT SCHEDULED FOR PICKUP AT 7PM.
--- NOTE | 2022-12-29 19:34 | NUR ---
PT STILL HERE. TRANSPORT NOT ARRIVED YET, SUPPOSE TO COME AT 7PM. ENDORSED TO NIGHTSHIFT NURSE FOR CONTINUITY OF CARE. TRANSPORT INFORMATION IN PREVIOUS NOTE.
--- NOTE | 2022-12-29 20:40 | NUR ---
[facility] TRANSPORT CAME TO PICKUP PATIENT TO BE TRANSFERRED TO [facility]. PATIENT IS IN STABLE CONDITION
--- NOTE | 2022-12-29 20:40 | NUR ---
[facility] TRANSPORT CAME TO [facility] TO BE TRANSFERRED TO [facility]
== END 2022-12-29 20:40 | disposition home or self-care (01) | DRG 698 ==
LOC: MED 09:49 → MTU 14:12
PROVIDERS: ADMIT Student in an Organized Health Care Education/Training Program; ATTEND Student in an Organized Health Care Education/Training Program
PROC: 0T9430Z Drainage of Left Kidney Pelvis with Drainage Device, Percutaneous Approach (ICD-10-PCS; 2022-12-28)
PROC: 30233N1 Transfusion of Nonautologous Red Blood Cells into Peripheral Vein, Percutaneous Approach (ICD-10-PCS; principal; 2022-12-29)
DX: T83.022A Displacement of nephrostomy catheter, initial encounter (principal); A41.9 Sepsis, unspecified organism; E43 Unspecified severe protein-calorie malnutrition; J18.9 Pneumonia, unspecified organism; R65.20 Severe sepsis without septic shock; T83.592A Infection and inflammatory reaction due to indwelling ureteral stent, initial encounter; N39.0 Urinary tract infection, site not specified; J96.11 Chronic respiratory failure with hypoxia; N13.6 Pyonephrosis; N17.9 Acute kidney failure, unspecified; Z66 Do not resuscitate; D72.823 Leukemoid reaction; N18.9 Chronic kidney disease, unspecified; K21.9 Gastro-esophageal reflux disease without esophagitis; I12.9 Hypertensive chronic kidney disease with stage 1 through stage 4 chronic kidney disease, or unspecified chronic kidney disease; N13.9 Obstructive and reflux uropathy, unspecified; E87.5 Hyperkalemia; E83.52 Hypercalcemia; C67.9 Malignant neoplasm of bladder, unspecified; K43.9 Ventral hernia without obstruction or gangrene; Z20.822 Contact with and (suspected) exposure to COVID-19; X58.XXXA Exposure to other specified factors, initial encounter; Z68.31 Body mass index [BMI] 31.0-31.9, adult
CPT/HCPCS: 36415; 50432; 71045; 76770; 77003; 80048; 80053; 80202; 81001; 83605; 83690; 83735; 84484; 85025; 85610; 85730; 86886; 86900; 86901; 86920; 87040; 87081; 87086; C1729; J0692; J2001; J2250; J2270; J2405; J3010; J3370; J7060; P9016; Q0092; Q9967